=== PATIENT | female | born 1955 | race Caucasian/White ===

== ENCOUNTER → 2018-08-17 09:47 | Outpatient (CLI) | payer OTHER, SELFPAY ==
[2018-08-17 11:54] LABS: Alanine Aminotransferase 23 IU/L (9-52); Albumin 4.5 g/dL (3.5-5.0); Albumin Globulin Ratio 1.6 (1.0-2.8); Alkaline Phosphatase 53 U/L (38-126); Aspartate Aminotransferase 23 IU/L (14-36); Bilirubin Total 0.6 mg/dL (0.2-1.3); Blood Urea Nitrogen 16 mg/dL (7-17); Calcium 10.1 mg/dL (8.4-10.2); Carbon Dioxide 30 mmol/L (22-32); Chloride 100 mmol/L (98-107); Estimated Glomerular Filt Rate > 60.0 mL/min (>60); Globulin 2.9 g/dL (1.7-4.1); Glucose 76 mg/dL (80-110); HEMOLYSIS < 15 (0-50); Potassium 4.6 mmol/L (3.4-5.1); Sodium 140 mmol/L (137-145); Total Protein 7.4 g/dL (6.3-8.2)
[2018-08-17 12:25] LABS: Thyroid Stimulating Hormone 4.47 uIU/mL (0.47-4.68)
== END ==
PROVIDERS: Family Provider Physician Assistant; PCP Physician Assistant; Visit Provider Family Medicine
DX: E03.9 Hypothyroidism, unspecified (principal); Z51.81 Encounter for therapeutic drug level monitoring; Z00.00 Encounter for general adult medical examination without abnormal findings
CPT/HCPCS: 36415; 80053; 84443

== ENCOUNTER → 2018-08-19 16:11 | Outpatient (CLI) | payer OTHER, SELFPAY ==
[2018-08-19 17:18] LABS: Hemoglobin 14.6 g/dL (12.0-16.0)
== END ==
PROVIDERS: Family Provider Physician Assistant; PCP Physician Assistant; Visit Provider Physician Assistant
DX: R06.09 Other forms of dyspnea (principal); Z01.818 Encounter for other preprocedural examination
CPT/HCPCS: 36415; 85018

== ENCOUNTER → 2018-09-10 09:01 | Outpatient (CLI) | payer OTHER, SELFPAY ==
--- NOTE | 2018-09-11 16:12 | PM.PFT.1 ---
Pulmonary Function Test Referral & Results Date Patient Seen: 09/10/18 Requesting provider: Valarie De Luna Results: The spirometry demonstrates an FVC of 2.57 L which is 70% of predicted. The FEV1 was measured at 1.85 L which is 72% of predicted. The FEV1/FVC ratio was 72 which is 91% of predicted. Following the administration of bronchodilator there was a 50% improvement in FEV1 and 83% improvement in FEF 25-75%. Lung volumes show an SVC of 2.40 L which is 79% of predicted. The diffusing capacity was measured at 20.97 which is 86% of predicted. 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
== END ==
PROVIDERS: PCP Physician Assistant; Visit Provider Physician Assistant
DX: R05 Cough (principal); R06.09 Other forms of dyspnea; R60.9 Edema, unspecified
CPT/HCPCS: 94060; 94726; 94729

== ENCOUNTER → 2018-10-26 11:39 | Outpatient (CLI) | payer OTHER, SELFPAY ==
[2018-10-26 12:58] LABS: Cholesterol 218 mg/dL (140-199); HDL Cholesterol 80 mg/dL (40-60); LDL Cholesterol Calculated 102 mg/dL (<100); Triglycerides 178 mg/dL (35-150)
[2018-10-26 13:26] LABS: Thyroid Stimulating Hormone 0.04 uIU/mL (0.47-4.68)
== END ==
PROVIDERS: PCP Physician Assistant; Visit Provider Physician Assistant
DX: Z13.220 Encounter for screening for lipoid disorders (principal); Z13.6 Encounter for screening for cardiovascular disorders; E03.9 Hypothyroidism, unspecified
CPT/HCPCS: 36415; 80061; 84443

== ENCOUNTER 2019-02-25 12:08 | Observation (INO) | payer OTHER, SELFPAY ==
[2019-02-25] VITALS (16 sets, daily range): BP systolic 94–152; BP diastolic 52–76; PULSE 83–121; RESP 15–26; TEMP 36.6–37.8; O2SAT 92–97; BMI 11.2
--- NOTE | 2019-02-25 12:18 | DI.RAD.S_ITS ---
PROCEDURE: XR CHEST 2V INDICATIONS: shortness of breath TECHNIQUE: 2 views of the chest were acquired. COMPARISON: [facility], , CHEST 2 VIEW, 06/07/2016, 19:55. FINDINGS: Surgical changes and devices: None. Lungs and pleura: There are opacities in the left mid to lower lung zone compatible with pneumonia. No pleural effusions or pneumothorax. Mediastinum: Mediastinal contours are normal. Heart size is normal. Bones and chest wall: No suspicious bony abnormalities. Soft tissues appear unremarkable. IMPRESSION: Opacities in the left mid to lower lung zone are compatible with pneumonia. Recommend short-term followup x-ray to ensure resolution. Dictated by: Shelia Louie M.D. on 02/25/2019 at 13:08 Approved by: Shelia Louie M.D. on 02/25/2019 at 13:12
--- NOTE | 2019-02-25 12:37 | ED.URI ---
HPI - URI/Sore Throat <Elinor Gallego PA-C - Last Filed: 02/25/19 20:24> General Chief Complaint: Upper Respiratory Symptoms Stated Complaint: worsening cough, CP, SOB Time Seen by Provider: 02/25/19 12:30 Source: patient Mode of arrival: ambulatory Limitations: no limitations History of Present Illness HPI Narrative: This 63-year-old female is sent from walk-in clinic due to respiratory symptoms, possible recurrent pneumonia. She states that 10 days ago she had a sore throat with nasal congestion and typical ?cold? symptoms. She states that some days after that, she started to have productive cough with dark phlegm. This has gradually worsened. Two nights ago she started to have chills and sweats (no temps taken at home), and has had gradually increasing dyspnea, especially last night and today, it was harder for her to walk up stairs at work. She states this feels somewhat like previous pneumonia. She states that she does have an albuterol inhaler at home that she uses for allergies, and this helps temporarily. She states her chest hurts if she takes a deep breath, cough or sneeze, otherwise no chest pain. She denies any new pain or swelling in her extremities or other new complaints on systems review. PCP Julia De Luna PA-C Related Data Home Medications Medication Instructions Recorded Confirmed meloxicam 15 mg PO DAILY PRN 02/25/19 02/25/19 Previous Rx's Medication Instructions Recorded albuterol sulfate HFA 90 2 puff INHALATION Q4-6H PRN #18 09/23/18 mcg/actuation aerosol inhaler gram fluticasone propionate 44 2 inhalation INHALATION BID #10.6 09/23/18 mcg/actuation HFA aerosol inhaler gram Testosterone Cream 1 mg TOP .COMPLEX #15 ml 09/25/18 [C-PROGESTERiN] 100 mg TOPICAL QDAY #30 ml 09/25/18 levothyroxine 150 mcg tablet 150 mcg PO DAILY #45 tab 10/26/18 Allergies Allergy/AdvReac Type Severity Reaction Status Date / Time No Known Drug Allergies Allergy Verified 02/25/19 11:52 Review of Systems <Elinor Gallego PA-C - Last Filed: 02/25/19 20:24> Review of Systems ROS Unobtainable: All systems reviewed & are unremarkable except as noted in HPI and below PFSH <Elinor Gallego PA-C - Last Filed: 02/25/19 20:24> Medical History 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) Asthma (Chronic) Hypothyroidism (Chronic) Osteoarthritis (Chronic) CAP (community acquired pneumonia) (Acute) Surgical History H/O colposcopy with cervical biopsy (Chronic) Social History Smoking Status: Former smoker Tobacco: How many years used: 25 second hand exposure: No alcohol intake: current substance use type: does not use Social History Smoking Status: Former smoker Tobacco: How many years used: 25 second hand exposure: No alcohol intake: current substance use type: does not use Exam <Elinor Gallego PA-C - Last Filed: 02/25/19 20:24> Narrative Exam Narrative: GENERAL APPEARANCE: Patient sitting comfortably, in no distress. HEAD: No sinus TTP. EYES: PERRL, EOMI. EARS: Normal auditory canals, TMS intact with normal light reflexes. ORAL CAVITY: Normal oropharynx. THROAT: Postnasal noted NECK/THYROID: Neck supple, full range of motion, shotty cervical lymphadenopathy. LUNGS: Generalized coarse, congested breath sounds with scattered crackles, no clear wheeze HEART: RRR without murmur, nl S1, S2, no S3 or S4. ABDOMEN: Soft, nontender, nondistended EXTREMITIES: No edema, no calf tenderness DERMATOLOGIC: No exanthem Initial Vital Signs Initial Vital Signs: Vital Signs Temperature 99.6 F 02/25/19 12:19 Pulse Rate 109 H 02/25/19 12:19 Respiratory Rate 22 02/25/19 12:19 Blood Pressure 152/66 H 02/25/19 12:19 Pulse Oximetry 97 02/25/19 12:19 <Chaya Gould DO - Last Filed: 02/26/19 08:11> Initial Vital Signs Initial Vital Signs: Vital Signs Temperature 99.6 F 02/25/19 12:19 Pulse Rate 109 H 02/25/19 12:19 Respiratory Rate 22 02/25/19 12:19 Blood Pressure 152/66 H 02/25/19 12:19 Pulse Oximetry 97 02/25/19 12:19 Course <Elinor Gallego PA-C - Last Filed: 02/25/19 20:24> Additional Information: I have spoken with Dr. Barron, platform consultant hospitalist, re: patient's persistent tachycardia, tachypnea, requiring some O2, not fully improved after treatments and fluids. She is agreeable with admit/tele for further treatment and monitoring Orders Ordered: ED Orders 02/26/19 05:24 Basic Metabolic Panel Routine Complete Blood Count AUTO DIFF Routine Acetaminophen (Tylenol) 650 mg PO Q6HR PRN PRN Reason: As Needed for Fever/Mild Pain Albuterol (Ventolin) 2.5 mg INH [id number] PRN PRN Reason: Shortness Of Breath Albuterol/Ipratropium (Duoneb) 3 ml INH RTQ4HR PRN PRN Reason: Shortness Of Breath Diphenhydramine HCl (Benadryl) 25 mg PO BEDTIME PRN PRN Reason: Insomnia Last Admin: 02/25/19 23:55 Dose: 25 mg Levofloxacin (Levaquin) 750 mg in 150 mls @ 100 mls/hr IV Q48H JOHN Sodium Chloride (Normal Saline 0.9%) 1,000 mls @ 125 mls/hr IV CONT JOHN Last Admin: 02/26/19 06:10 Dose: 125 mls/hr Infusion: 02/26/19 05:51 Dose: 125 mls/hr Admin: 02/25/19 21:51 Dose: 125 mls/hr Levothyroxine Sodium (Synthroid) 150 mcg PO 0600 JOHN Last Admin: 02/26/19 06:10 Dose: 150 mcg Methylprednisolone (Solu-Medrol 125 Mg Vial) 80 mg IV NOW ONE Stop: 02/26/19 09:29 Discontinued Medications Acetaminophen (Tylenol) 650 mg PO NOW ONE Stop: 02/25/19 15:09 Last Admin: 02/25/19 15:23 Dose: 650 mg Al Hydrox/Mg Hydrox/Simethicone (Maalox Plus) 20 ml PO NOW ONE Stop: 02/26/19 06:19 Last Admin: 02/26/19 06:54 Dose: Not Given Albuterol (Ventolin) 2.5 mg INH NOW ONE Stop: 02/25/19 13:47 Last Admin: 02/25/19 14:24 Dose: 2.5 mg Albuterol/Ipratropium (Duoneb) 3 ml INH NOW ONE Stop: 02/25/19 13:19 Last Admin: 02/25/19 13:24 Dose: 3 ml Albuterol/Ipratropium (Duoneb) 3 ml INH NOW ONE Stop: 02/25/19 13:53 Last Admin: 02/25/19 14:24 Dose: 3 ml Al Hydrox/Mg Hydrox/Simethicone 20 ml/ Lidocaine HCl 15 ml 0 ml PO NOW ONE Stop: 02/25/19 16:36 Last Admin: 02/25/19 16:43 Dose: 35 ml Sodium Chloride (Normal Saline 0.9%) 1,000 mls @ 1,000 mls/hr IV BOLUS ONE Stop: 02/25/19 14:29 Last Infusion: 02/25/19 14:51 Dose: 0 mls/hr Admin: 02/25/19 13:34 Dose: 1,000 mls/hr Levofloxacin (Levaquin) 750 mg in 150 mls @ 100 mls/hr IV NOW ONE Stop: 02/25/19 16:23 Last Infusion: 02/25/19 17:25 Dose: 0 mls/hr Admin: 02/25/19 15:05 Dose: 100 mls/hr Sodium Chloride (Normal Saline 0.9%) 1,000 mls @ 1,000 mls/hr IV BOLUS ONE Stop: 02/25/19 15:53 Last Infusion: 02/25/19 17:32 Dose: 0 mls/hr Admin: 02/25/19 15:05 Dose: 1,000 mls/hr Sodium Chloride (Normal Saline 0.45%) 1,000 mls @ 100 mls/hr IV CONT JOHN Last Admin: 02/25/19 20:47 Dose: 100 mls/hr Ibuprofen (Advil) 800 mg PO NOW ONE Stop: 02/25/19 13:31 Last Admin: 02/25/19 13:33 Dose: 800 mg Lidocaine HCl (Viscous Lidocaine 2%) 15 ml PO NOW ONE Stop: 02/26/19 06:20 Last Admin: 02/26/19 06:54 Dose: Not Given Methylprednisolone (Solu-Medrol 125 Mg Vial) 125 mg IV NOW ONE Stop: 02/25/19 13:47 Last Admin: 02/25/19 13:50 Dose: 125 mg Ranitidine HCl (Zantac) 300 mg PO NOW ONE Stop: 02/25/19 16:36 Last Admin: 02/25/19 16:44 Dose: 300 mg Ranitidine HCl (Zantac) 150 mg PO NOW ONE Stop: 02/26/19 06:50 Last Admin: 02/26/19 07:09 Dose: 150 mg Vital Signs - 8 hr 02/26/19 05:33 Temperature 97.9 F Pulse Rate 79 Respiratory Rate 18 Blood Pressure 127/72 Pulse Oximetry 95 <Chaya Gould DO - Last Filed: 02/26/19 08:11> Orders Ordered: ED Orders 02/26/19 05:24 Basic Metabolic Panel Routine Complete Blood Count AUTO DIFF Routine Acetaminophen (Tylenol) 650 mg PO Q6HR PRN PRN Reason: As Needed for Fever/Mild Pain Albuterol (Ventolin) 2.5 mg INH [id number] PRN PRN Reason: Shortness Of Breath Albuterol/Ipratropium (Duoneb) 3 ml INH RTQ4HR PRN PRN Reason: Shortness Of Breath Diphenhydramine HCl (Benadryl) 25 mg PO BEDTIME PRN PRN Reason: Insomnia Last Admin: 02/25/19 23:55 Dose: 25 mg Levofloxacin (Levaquin) 750 mg in 150 mls @ 100 mls/hr IV Q48H [facility] Sodium Chloride (Normal Saline 0.9%) 1,000 mls @ 125 mls/hr IV CONT [facility] Last Admin: 02/26/19 06:10 Dose: 125 mls/hr Infusion: 02/26/19 05:51 Dose: 125 mls/hr Admin: 02/25/19 21:51 Dose: 125 mls/hr Levothyroxine Sodium (Synthroid) 150 mcg PO 0600 [facility] Last Admin: 02/26/19 06:10 Dose: 150 mcg Methylprednisolone (Solu-Medrol 125 Mg Vial) 80 mg IV NOW ONE Stop: 02/26/19 09:29 Discontinued Medications Acetaminophen (Tylenol) 650 mg PO NOW ONE Stop: 02/25/19 15:09 Last Admin: 02/25/19 15:23 Dose: 650 mg Al Hydrox/Mg Hydrox/Simethicone (Maalox Plus) 20 ml PO NOW ONE Stop: 02/26/19 06:19 Last Admin: 02/26/19 06:54 Dose: Not Given Albuterol (Ventolin) 2.5 mg INH NOW ONE Stop: 02/25/19 13:47 Last Admin: 02/25/19 14:24 Dose: 2.5 mg Albuterol/Ipratropium (Duoneb) 3 ml INH NOW ONE Stop: 02/25/19 13:19 Last Admin: 02/25/19 13:24 Dose: 3 ml Albuterol/Ipratropium (Duoneb) 3 ml INH NOW ONE Stop: 02/25/19 13:53 Last Admin: 02/25/19 14:24 Dose: 3 ml Al Hydrox/Mg Hydrox/Simethicone 20 ml/ Lidocaine HCl 15 ml 0 ml PO NOW ONE Stop: 02/25/19 16:36 Last Admin: 02/25/19 16:43 Dose: 35 ml Sodium Chloride (Normal Saline 0.9%) 1,000 mls @ 1,000 mls/hr IV BOLUS ONE Stop: 02/25/19 14:29 Last Infusion: 02/25/19 14:51 Dose: 0 mls/hr Admin: 02/25/19 13:34 Dose: 1,000 mls/hr Levofloxacin (Levaquin) 750 mg in 150 mls @ 100 mls/hr IV NOW ONE Stop: 02/25/19 16:23 Last Infusion: 02/25/19 17:25 Dose: 0 mls/hr Admin: 02/25/19 15:05 Dose: 100 mls/hr Sodium Chloride (Normal Saline 0.9%) 1,000 mls @ 1,000 mls/hr IV BOLUS ONE Stop: 02/25/19 15:53 Last Infusion: 02/25/19 17:32 Dose: 0 mls/hr Admin: 02/25/19 15:05 Dose: 1,000 mls/hr Sodium Chloride (Normal Saline 0.45%) 1,000 mls @ 100 mls/hr IV CONT JOHN Last Admin: 02/25/19 20:47 Dose: 100 mls/hr Ibuprofen (Advil) 800 mg PO NOW ONE Stop: 02/25/19 13:31 Last Admin: 02/25/19 13:33 Dose: 800 mg Lidocaine HCl (Viscous Lidocaine 2%) 15 ml PO NOW ONE Stop: 02/26/19 06:20 Last Admin: 02/26/19 06:54 Dose: Not Given Methylprednisolone (Solu-Medrol 125 Mg Vial) 125 mg IV NOW ONE Stop: 02/25/19 13:47 Last Admin: 02/25/19 13:50 Dose: 125 mg Ranitidine HCl (Zantac) 300 mg PO NOW ONE Stop: 02/25/19 16:36 Last Admin: 02/25/19 16:44 Dose: 300 mg Ranitidine HCl (Zantac) 150 mg PO NOW ONE Stop: 02/26/19 06:50 Last Admin: 02/26/19 07:09 Dose: 150 mg Vital Signs - 8 hr 02/26/19 05:33 Temperature 97.9 F Pulse Rate 79 Respiratory Rate 18 Blood Pressure 127/72 Pulse Oximetry 95 MDM - URI/Sore Throat <Elinor Gallego PA-C - Last Filed: 02/25/19 20:24> Lab Data Attestation: I reviewed the patient's lab results. Result diagrams: 02/26/19 05:24 02/26/19 05:24 Lab Results 02/25/19 02/25/19 02/25/19 Range/Units 12:30 12:30 12:30 WBC 17.6 H (4.5-11.0) X10^3/uL RBC 4.42 (4.0-5.2) X10^6/uL Hgb 14.2 (12.0-16.0) g/dL Hct 42.4 (36-46) % MCV 95.8 (80-100) fL MCH 32.1 (26-34) PG MCHC 33.5 (30-36) % RDW 12.7 (11.6-14.8) % Plt Count 283 (150-400) X10^3/uL Neut % (Auto) 88.2 H (50-75) % Lymph % (Auto) 6.1 L (25-40) % [place] % (Auto) 5.0 (3-14) % Eos % (Auto) 0.3 L (2-4) % Baso % (Auto) 0.4 (0-2) % Neut # (Auto) 51972 H (5181-6834) /uL Lymph # (Auto) 1100 (8129-1162) /uL [place] # (Auto) 900 (0-900) /uL Eos # (Auto) 100 (0-450) /uL Baso # (Auto) 100 (0-100) /uL Sodium 137 (137-145) mmol/L Potassium 3.8 (3.4-5.1) mmol/L Chloride 100 (98-107) mmol/L Carbon Dioxide 26 (22-32) mmol/L BUN 12 (7-17) mg/dL Creatinine 0.80 (0.52-1.04) mg/dL Estimated GFR > 60.0 (>60) mL/min BUN/Creatinine Ratio 15.0 (6-22) Glucose 97 (80-110) mg/dL Lactate 0.9 (0.7-2.1) mmol/L Calcium 9.6 (8.4-10.2) mg/dL Total Bilirubin 0.9 (0.2-1.3) mg/dL AST 23 (14-36) IU/L ALT 13 (9-52) IU/L Alkaline Phosphatase 74 (38-126) U/L B-Natriuretic Peptide (<100) Total Protein 8.1 (6.3-8.2) g/dL Albumin 4.6 (3.5-5.0) g/dL Globulin 3.5 (1.7-4.1) g/dL Albumin/Globulin Ratio 1.3 (1.0-2.8) Procalcitonin (<0.5) ng/mL Chlamy pneumoniae PCR (Not Detect) Adenovirus (PCR) (Not Detect) B.parapertussis DNA PCR (Not Detect) Coronavirus OC43 (PCR) (Not Detect) Coronavirus HKU1 (PCR) (Not Detect) Coronavirus 229E (PCR) (Not Detect) Coronavirus NL63 (PCR) (Not Detect) Human Metapneumovir PCR (Not Detect) Influenza Type A (PCR) (Not Detect) Influenza Type B (PCR) (Not Detect) M. pneumoniae (PCR) (Not Detect) Parainfluenza 1 (PCR) (Not Detect) Parainfluenza 2 (PCR) (Not Detect) Parainfluenza 3 (PCR) (Not Detect) Parainfluenza 4 (PCR) (Not Detect) RSV (PCR) (Not Detect) Entero/Rhino (PCR) (Not Detect) 02/25/19 02/25/19 02/25/19 Range/Units 12:30 12:40 17:15 WBC (4.5-11.0) X10^3/uL RBC (4.0-5.2) X10^6/uL Hgb (12.0-16.0) g/dL Hct (36-46) % MCV (80-100) fL MCH (26-34) PG MCHC (30-36) % RDW (11.6-14.8) % Plt Count (150-400) X10^3/uL Neut % (Auto) (50-75) % Lymph % (Auto) (25-40) % [place] % (Auto) (3-14) % Eos % (Auto) (2-4) % Baso % (Auto) (0-2) % Neut # (Auto) (3764-2302) /uL Lymph # (Auto) (5749-0195) /uL [place] # (Auto) (0-900) /uL Eos # (Auto) (0-450) /uL Baso # (Auto) (0-100) /uL Sodium (137-145) mmol/L Potassium (3.4-5.1) mmol/L Chloride (98-107) mmol/L Carbon Dioxide (22-32) mmol/L BUN (7-17) mg/dL Creatinine (0.52-1.04) mg/dL Estimated GFR (>60) mL/min BUN/Creatinine Ratio (6-22) Glucose (80-110) mg/dL Lactate (0.7-2.1) mmol/L Calcium (8.4-10.2) mg/dL Total Bilirubin (0.2-1.3) mg/dL AST (14-36) IU/L ALT (9-52) IU/L Alkaline Phosphatase (38-126) U/L B-Natriuretic Peptide < 100 (<100) Total Protein (6.3-8.2) g/dL Albumin (3.5-5.0) g/dL Globulin (1.7-4.1) g/dL Albumin/Globulin Ratio (1.0-2.8) Procalcitonin 1.14 H (<0.5) ng/mL Chlamy pneumoniae PCR Not detected (Not Detect) Adenovirus (PCR) Not detected (Not Detect) B.parapertussis DNA PCR Not detected (Not Detect) Coronavirus OC43 (PCR) Not detected (Not Detect) Coronavirus HKU1 (PCR) Not detected (Not Detect) Coronavirus 229E (PCR) Not detected (Not Detect) Coronavirus NL63 (PCR) Not detected (Not Detect) Human Metapneumovir PCR Not detected (Not Detect) Influenza Type A (PCR) Not detected (Not Detect) Influenza Type B (PCR) Not detected (Not Detect) M. pneumoniae (PCR) Not detected (Not Detect) Parainfluenza 1 (PCR) Not detected (Not Detect) Parainfluenza 2 (PCR) Not detected (Not Detect) Parainfluenza 3 (PCR) Not detected (Not Detect) Parainfluenza 4 (PCR) Not detected (Not Detect) RSV (PCR) Not detected (Not Detect) Entero/Rhino (PCR) Not detected (Not Detect) 02/26/19 02/26/19 Range/Units 05:24 05:24 WBC 16.2 H (4.5-11.0) X10^3/uL RBC 3.90 L (4.0-5.2) X10^6/uL Hgb 12.6 (12.0-16.0) g/dL Hct 37.2 (36-46) % MCV 95.5 (80-100) fL MCH 32.2 (26-34) PG MCHC 33.8 (30-36) % RDW 12.8 (11.6-14.8) % Plt Count 238 (150-400) X10^3/uL Neut % (Auto) 94.1 H (50-75) % Lymph % (Auto) 3.2 L (25-40) % [place] % (Auto) 2.6 L (3-14) % Eos % (Auto) 0.0 L (2-4) % Baso % (Auto) 0.1 (0-2) % Neut # (Auto) 56527 H (8844-7428) /uL Lymph # (Auto) 500 L (9654-5088) /uL [place] # (Auto) 400 (0-900) /uL Eos # (Auto) 0 (0-450) /uL Baso # (Auto) 0 (0-100) /uL Sodium 143 (137-145) mmol/L Potassium 4.1 (3.4-5.1) mmol/L Chloride 109 H (98-107) mmol/L Carbon Dioxide 26 (22-32) mmol/L BUN 9 (7-17) mg/dL Creatinine 0.60 (0.52-1.04) mg/dL Estimated GFR > 60.0 (>60) mL/min BUN/Creatinine Ratio 15.0 (6-22) Glucose 139 H (80-110) mg/dL Lactate (0.7-2.1) mmol/L Calcium 8.9 (8.4-10.2) mg/dL Total Bilirubin (0.2-1.3) mg/dL AST (14-36) IU/L ALT (9-52) IU/L Alkaline Phosphatase (38-126) U/L B-Natriuretic Peptide (<100) Total Protein (6.3-8.2) g/dL Albumin (3.5-5.0) g/dL Globulin (1.7-4.1) g/dL Albumin/Globulin Ratio (1.0-2.8) Procalcitonin (<0.5) ng/mL Chlamy pneumoniae PCR (Not Detect) Adenovirus (PCR) (Not Detect) B.parapertussis DNA PCR (Not Detect) Coronavirus OC43 (PCR) (Not Detect) Coronavirus HKU1 (PCR) (Not Detect) Coronavirus 229E (PCR) (Not Detect) Coronavirus NL63 (PCR) (Not Detect) Human Metapneumovir PCR (Not Detect) Influenza Type A (PCR) (Not Detect) Influenza Type B (PCR) (Not Detect) M. pneumoniae (PCR) (Not Detect) Parainfluenza 1 (PCR) (Not Detect) Parainfluenza 2 (PCR) (Not Detect) Parainfluenza 3 (PCR) (Not Detect) Parainfluenza 4 (PCR) (Not Detect) RSV (PCR) (Not Detect) Entero/Rhino (PCR) (Not Detect) Imaging Data Chest x-ray: Radiologist's impression: [address] [address] XRay Report Signed Patient: Znaa Valero#: [id number] : 7Acct:[id number] Age/Sex: 63 / FDate of Service: 02/25/19 Loc: ED Accession Number: [id number] Procedure: XR chest 2V Ordering Provider: Chaya Gould D.O. PROCEDURE: XR CHEST 2V INDICATIONS: shortness of breath TECHNIQUE: 2 views of the chest were acquired. COMPARISON: [facility], CHEST 2 VIEW, 06/07/2016, 19:55. FINDINGS: Surgical changes and devices: None. Lungs and pleura: There are opacities in the left mid to lower lung zone compatible with pneumonia. No pleural effusions or pneumothorax. Mediastinum: Mediastinal contours are normal. Heart size is normal. Bones and chest wall: No suspicious bony abnormalities. Soft tissues appear unremarkable. IMPRESSION: Opacities in the left mid to lower lung zone are compatible with pneumonia. Recommend short-term followup x-ray to ensure resolution. Dictated by: Shelia Louie M.D. on 02/25/2019 at 13:08 Approved by: Shelia Louie M.D. on 02/25/2019 at 13:12 ECG Data Attestation: I personally reviewed and interpreted this ECG as follows: (Sinus tachycardia, rate 102, normal axis) <Chaya Gould DO - Last Filed: 02/26/19 08:11> Lab Data Lab Results 02/25/19 02/25/19 02/25/19 Range/Units 12:30 12:30 12:30 WBC 17.6 H (4.5-11.0) X10^3/uL RBC 4.42 (4.0-5.2) X10^6/uL Hgb 14.2 (12.0-16.0) g/dL Hct 42.4 (36-46) % MCV 95.8 (80-100) fL MCH 32.1 (26-34) PG MCHC 33.5 (30-36) % RDW 12.7 (11.6-14.8) % Plt Count 283 (150-400) X10^3/uL Neut % (Auto) 88.2 H (50-75) % Lymph % (Auto) 6.1 L (25-40) % [place] % (Auto) 5.0 (3-14) % Eos % (Auto) 0.3 L (2-4) % Baso % (Auto) 0.4 (0-2) % Neut # (Auto) 77132 H (5719-9522) /uL Lymph # (Auto) 1100 (9110-0945) /uL [place] # (Auto) 900 (0-900) /uL Eos # (Auto) 100 (0-450) /uL Baso # (Auto) 100 (0-100) /uL Sodium 137 (137-145) mmol/L Potassium 3.8 (3.4-5.1) mmol/L Chloride 100 (98-107) mmol/L Carbon Dioxide 26 (22-32) mmol/L BUN 12 (7-17) mg/dL Creatinine 0.80 (0.52-1.04) mg/dL Estimated GFR > 60.0 (>60) mL/min BUN/Creatinine Ratio 15.0 (6-22) Glucose 97 (80-110) mg/dL Lactate 0.9 (0.7-2.1) mmol/L Calcium 9.6 (8.4-10.2) mg/dL Total Bilirubin 0.9 (0.2-1.3) mg/dL AST 23 (14-36) IU/L ALT 13 (9-52) IU/L Alkaline Phosphatase 74 (38-126) U/L B-Natriuretic Peptide (<100) Total Protein 8.1 (6.3-8.2) g/dL Albumin 4.6 (3.5-5.0) g/dL Globulin 3.5 (1.7-4.1) g/dL Albumin/Globulin Ratio 1.3 (1.0-2.8) Procalcitonin (<0.5) ng/mL Chlamy pneumoniae PCR (Not Detect) Adenovirus (PCR) (Not Detect) B.parapertussis DNA PCR (Not Detect) Coronavirus OC43 (PCR) (Not Detect) Coronavirus HKU1 (PCR) (Not Detect) Coronavirus 229E (PCR) (Not Detect) Coronavirus NL63 (PCR) (Not Detect) Human Metapneumovir PCR (Not Detect) Influenza Type A (PCR) (Not Detect) Influenza Type B (PCR) (Not Detect) M. pneumoniae (PCR) (Not Detect) Parainfluenza 1 (PCR) (Not Detect) Parainfluenza 2 (PCR) (Not Detect) Parainfluenza 3 (PCR) (Not Detect) Parainfluenza 4 (PCR) (Not Detect) RSV (PCR) (Not Detect) Entero/Rhino (PCR) (Not Detect) 02/25/19 02/25/19 02/25/19 Range/Units 12:30 12:40 17:15 WBC (4.5-11.0) X10^3/uL RBC (4.0-5.2) X10^6/uL Hgb (12.0-16.0) g/dL Hct (36-46) % MCV (80-100) fL MCH (26-34) PG MCHC (30-36) % RDW (11.6-14.8) % Plt Count (150-400) X10^3/uL Neut % (Auto) (50-75) % Lymph % (Auto) (25-40) % [place] % (Auto) (3-14) % Eos % (Auto) (2-4) % Baso % (Auto) (0-2) % Neut # (Auto) (0827-0984) /uL Lymph # (Auto) (0784-1234) /uL [place] # (Auto) (0-900) /uL Eos # (Auto) (0-450) /uL Baso # (Auto) (0-100) /uL Sodium (137-145) mmol/L Potassium (3.4-5.1) mmol/L Chloride (98-107) mmol/L Carbon Dioxide (22-32) mmol/L BUN (7-17) mg/dL Creatinine (0.52-1.04) mg/dL Estimated GFR (>60) mL/min BUN/Creatinine Ratio (6-22) Glucose (80-110) mg/dL Lactate (0.7-2.1) mmol/L Calcium (8.4-10.2) mg/dL Total Bilirubin (0.2-1.3) mg/dL AST (14-36) IU/L ALT (9-52) IU/L Alkaline Phosphatase (38-126) U/L B-Natriuretic Peptide < 100 (<100) Total Protein (6.3-8.2) g/dL Albumin (3.5-5.0) g/dL Globulin (1.7-4.1) g/dL Albumin/Globulin Ratio (1.0-2.8) Procalcitonin 1.14 H (<0.5) ng/mL Chlamy pneumoniae PCR Not detected (Not Detect) Adenovirus (PCR) Not detected (Not Detect) B.parapertussis DNA PCR Not detected (Not Detect) Coronavirus OC43 (PCR) Not detected (Not Detect) Coronavirus HKU1 (PCR) Not detected (Not Detect) Coronavirus 229E (PCR) Not detected (Not Detect) Coronavirus NL63 (PCR) Not detected (Not Detect) Human Metapneumovir PCR Not detected (Not Detect) Influenza Type A (PCR) Not detected (Not Detect) Influenza Type B (PCR) Not detected (Not Detect) M. pneumoniae (PCR) Not detected (Not Detect) Parainfluenza 1 (PCR) Not detected (Not Detect) Parainfluenza 2 (PCR) Not detected (Not Detect) Parainfluenza 3 (PCR) Not detected (Not Detect) Parainfluenza 4 (PCR) Not detected (Not Detect) RSV (PCR) Not detected (Not Detect) Entero/Rhino (PCR) Not detected (Not Detect) 02/26/19 02/26/19 Range/Units 05:24 05:24 WBC 16.2 H (4.5-11.0) X10^3/uL RBC 3.90 L (4.0-5.2) X10^6/uL Hgb 12.6 (12.0-16.0) g/dL Hct 37.2 (36-46) % MCV 95.5 (80-100) fL MCH 32.2 (26-34) PG MCHC 33.8 (30-36) % RDW 12.8 (11.6-14.8) % Plt Count 238 (150-400) X10^3/uL Neut % (Auto) 94.1 H (50-75) % Lymph % (Auto) 3.2 L (25-40) % [place] % (Auto) 2.6 L (3-14) % Eos % (Auto) 0.0 L (2-4) % Baso % (Auto) 0.1 (0-2) % Neut # (Auto) 44012 H (4807-1550) /uL Lymph # (Auto) 500 L (9746-7096) /uL [place] # (Auto) 400 (0-900) /uL Eos # (Auto) 0 (0-450) /uL Baso # (Auto) 0 (0-100) /uL Sodium 143 (137-145) mmol/L Potassium 4.1 (3.4-5.1) mmol/L Chloride 109 H (98-107) mmol/L Carbon Dioxide 26 (22-32) mmol/L BUN 9 (7-17) mg/dL Creatinine 0.60 (0.52-1.04) mg/dL Estimated GFR > 60.0 (>60) mL/min BUN/Creatinine Ratio 15.0 (6-22) Glucose 139 H (80-110) mg/dL Lactate (0.7-2.1) mmol/L Calcium 8.9 (8.4-10.2) mg/dL Total Bilirubin (0.2-1.3) mg/dL AST (14-36) IU/L ALT (9-52) IU/L Alkaline Phosphatase (38-126) U/L B-Natriuretic Peptide (<100) Total Protein (6.3-8.2) g/dL Albumin (3.5-5.0) g/dL Globulin (1.7-4.1) g/dL Albumin/Globulin Ratio (1.0-2.8) Procalcitonin (<0.5) ng/mL Chlamy pneumoniae PCR (Not Detect) Adenovirus (PCR) (Not Detect) B.parapertussis DNA PCR (Not Detect) Coronavirus OC43 (PCR) (Not Detect) Coronavirus HKU1 (PCR) (Not Detect) Coronavirus 229E (PCR) (Not Detect) Coronavirus NL63 (PCR) (Not Detect) Human Metapneumovir PCR (Not Detect) Influenza Type A (PCR) (Not Detect) Influenza Type B (PCR) (Not Detect) M. pneumoniae (PCR) (Not Detect) Parainfluenza 1 (PCR) (Not Detect) Parainfluenza 2 (PCR) (Not Detect) Parainfluenza 3 (PCR) (Not Detect) Parainfluenza 4 (PCR) (Not Detect) RSV (PCR) (Not Detect) Entero/Rhino (PCR) (Not Detect) Imaging Data CT scan - chest: Radiologist's impression: PROCEDURE: CT ANGIO CHEST PE PROTOCOL INDICATIONS: SOB, tachy TECHNIQUE: After the administration of intravenous contrast, 2 mm thick sections acquired from the pulmonary apices to the posterior costophrenic angles. 3-dimensional maximum intensity projection (MIP) coronal and sagittal reformats were then acquired through the thorax. For radiation dose reduction, the following was used: automated exposure control, adjustment of mA and/or kV according to patient size. COMPARISON: [facility], CR, XR CHEST 2V, 02/25/2019, 12:18. [facility], CT, ABDOMEN/PELVIS WITH CONTRAST, 02/11/2012, 13:23. FINDINGS: Image quality: Excellent. Pulmonary arteries: Pulmonary arteries are normal in size, and demonstrate no intraluminal filling defects to suggest central pulmonary embolism. Lungs and pleura: The consolidation noted in the lingula left upper lobe. Patchy opacities in the lung bases bilaterally which could represent atelectasis, aspiration or pneumonia. No pleural effusions or pneumothorax. Central and peripheral airways are patent. Mediastinum: Heart size is normal, without pericardial effusion. No mediastinal or hilar adenopathy. Thoracic aorta is normal in caliber and enhancement. Esophagus is normal in caliber. Small hiatal hernia. Bones and chest wall: No suspicious bony lesions. Ribs and thoracic spine appear intact throughout. Thyroid gland is within normal limits. No axillary or supraclavicular adenopathy. Abdomen: There is a large cyst in the right lobe liver that measures up to 9.8 cm. Cyst is increased in size compared to 02/11/2012. Small 1 cm left adrenal nodule is unchanged in appearance compared to prior CT scan. Visualized upper abdominal solid organs appear normal in the early arterial phase of enhancement. IMPRESSION: 1. No pulmonary embolus. 2. Consolidation in the lingula left upper lobe compatible with pneumonia. 3. Patchy airspace opacities in the lung bases bilaterally which could be related to atelectasis, aspiration or pneumonia. 3. Large hepatic cysts. 4. 1 cm left adrenal nodule stable compared to 02/11/2012. 5. Small hiatal hernia. Dictated by: Eden Burdick MD, PhD on 02/25/2019 at 16:09 ECG Data Attestation: I personally reviewed and interpreted this ECG as follows: Prior ECG tracings: not available for review Interpretation: Normal sinus rhythm rate 102 SD interval [address] changes no T-wave inversions no priors to compare Discharge Plan Departure Patient Disposition: Admitted As Inpatient Clinical Impression: Pneumonia Qualifiers: Pneumonia type: due to unspecified organism Laterality: left Lung location: unspecified part of lung Qualified Code(s): J18.9 - Pneumonia, unspecified organism Asthma Qualifiers: Asthma severity: moderate Asthma persistence: unspecified Asthma complication type: with acute exacerbation Qualified Code(s): J45.901 - Unspecified asthma with (acute) exacerbation Discharge Date/Time: 02/25/19 17:33 Interventions: ED Discharge Assessment Last Done: 02/25/19 17:32 Admit Date/Time: 02/25/19 17:11 Admit Provider: Natty Barron <Chaya Gould DO - Last Filed: 02/26/19 08:11> Cosign ED Attending Christian Attestation: I was immediately available in the department for consultation. Documentation has been reviewed. I agree with assessment and plan.
[2019-02-25 12:45] LABS: Add Manual Diff / Slide Review NO; Basophils Absolute Auto 100 /uL (0-100); Basophils Percent Auto 0.4 % (0-2); Eosinophils Absolute Auto 100 /uL (0-450); Eosinophils Percent Auto 0.3 % (2-4); Hematocrit 42.4 % (36-46); Hemoglobin 14.2 g/dL (12.0-16.0); Lymphocytes Absolute Auto 1100 /uL (1100-4500); Lymphocytes Percent Auto 6.1 % (25-40); Mean Corpuscular HGB Conc 33.5 % (30-36); Mean Corpuscular Hemoglobin 32.1 PG (26-34); Mean Corpuscular Volume 95.8 fL (80-100); Monocytes Absolute Auto 900 /uL (0-900); Neutrophils Absolute Auto 15500 /uL (1500-7000); Neutrophils Percent Auto 88.2 % (50-75); Platelet Count 283 X10^3/uL (150-400); Red Blood Cell Count 4.42 X10^6/uL (4.0-5.2); Red Cell Distribution Width 12.7 % (11.6-14.8); White Blood Cell Count 17.6 X10^3/uL (4.5-11.0)
[2019-02-25 12:58] LABS: Alanine Aminotransferase 13 IU/L (9-52); Albumin 4.6 g/dL (3.5-5.0); Albumin Globulin Ratio 1.3 (1.0-2.8); Alkaline Phosphatase 74 U/L (38-126); Aspartate Aminotransferase 23 IU/L (14-36); Bilirubin Total 0.9 mg/dL (0.2-1.3); Blood Urea Nitrogen 12 mg/dL (7-17); Calcium 9.6 mg/dL (8.4-10.2); Carbon Dioxide 26 mmol/L (22-32); Chloride 100 mmol/L (98-107); Estimated Glomerular Filt Rate > 60.0 mL/min (>60); Globulin 3.5 g/dL (1.7-4.1); Glucose 97 mg/dL (80-110); HEMOLYSIS < 15 (0-50); Lactate (Lactic Acid) 0.9 mmol/L (0.7-2.1); Potassium 3.8 mmol/L (3.4-5.1); Sodium 137 mmol/L (137-145); Total Protein 8.1 g/dL (6.3-8.2)
[2019-02-25] MEDS: ALBUTEROL/IPRATROPIUM 3 ML AMPUL INH ×2 (13:24→14:24)
[2019-02-25] MEDS: IBUPROFEN 400 MG TABLET 800 MG PO (13:33)
[2019-02-25] MEDS: SODIUM CHLORIDE 0.9% 1,000 ML 1000 ML IV ×2 (13:34→15:05)
[2019-02-25 13:35] LABS: B Type Natriuretic Peptide < 100 (<100)
[2019-02-25] MEDS: methylPREDNISolone 125 MG/2 ML VIAL IV (13:50)
[2019-02-25] MEDS: ALBUTEROL 2.5 MG/3 ML NEB (ADULT) INH (14:24)
[2019-02-25] MEDS: levoFLOXacin 750 MG/150 ML PIGGYBACK 100 MG IV (15:05)
--- NOTE | 2019-02-25 15:21 | DI.CT.S_ITS ---
PROCEDURE: CT ANGIO CHEST PE PROTOCOL INDICATIONS: SOB, tachy TECHNIQUE: After the administration of intravenous contrast, 2 mm thick sections acquired from the pulmonary apices to the posterior costophrenic angles. 3-dimensional maximum intensity projection (MIP) coronal and sagittal reformats were then acquired through the thorax. For radiation dose reduction, the following was used: automated exposure control, adjustment of mA and/or kV according to patient size. COMPARISON: Located Within [facility], CR, XR CHEST 2V, 02/25/2019, 12:18. Located Within [facility], CT, ABDOMEN/PELVIS WITH CONTRAST, 02/11/2012, 13:23. FINDINGS: Image quality: Excellent. Pulmonary arteries: Pulmonary arteries are normal in size, and demonstrate no intraluminal filling defects to suggest central pulmonary embolism. Lungs and pleura: The consolidation noted in the lingula left upper lobe. Patchy opacities in the lung bases bilaterally which could represent atelectasis, aspiration or pneumonia. No pleural effusions or pneumothorax. Central and peripheral airways are patent. Mediastinum: Heart size is normal, without pericardial effusion. No mediastinal or hilar adenopathy. Thoracic aorta is normal in caliber and enhancement. Esophagus is normal in caliber. Small hiatal hernia. Bones and chest wall: No suspicious bony lesions. Ribs and thoracic spine appear intact throughout. Thyroid gland is within normal limits. No axillary or supraclavicular adenopathy. Abdomen: There is a large cyst in the right lobe liver that measures up to 9.8 cm. Cyst is increased in size compared to 02/11/2012. Small 1 cm left adrenal nodule is unchanged in appearance compared to prior CT scan. Visualized upper abdominal solid organs appear normal in the early arterial phase of enhancement. IMPRESSION: 1. No pulmonary embolus. 2. Consolidation in the lingula left upper lobe compatible with pneumonia. 3. Patchy airspace opacities in the lung bases bilaterally which could be related to atelectasis, aspiration or pneumonia. 3. Large hepatic cysts. 4. 1 cm left adrenal nodule stable compared to 02/11/2012. 5. Small hiatal hernia. Dictated by: Eden Burdick MD, PhD on 02/25/2019 at 16:09 Approved by: Eden Burdick MD, PhD on 02/25/2019 at 16:16
[2019-02-25] MEDS: ACETAMINOPHEN 325 MG TABLET 650 MG PO (15:23)
[2019-02-25] MEDS: MAG HYDROX/ALUMINUM/SIMETH SUS 20 ML, LIDOCAINE VISCOUS 2% 15 ML PO (16:43)
[2019-02-25 17:36] LABS: Procalcitonin 1.14 ng/mL (<0.5)
[2019-02-25 18:44] LABS: Adenovirus Not Detected (Not Detect); Bordetella pertussis Not Detected (Not Detect); Chlamydophila pneumoniae Not Detected (Not Detect); Coronavirus 229E Not Detected (Not Detect); Coronavirus HKU1 Not Detected (Not Detect); Coronavirus NL 63 Not Detected (Not Detect); Coronavirus OC43 Not Detected (Not Detect); Human Metapneumovirus Not Detected (Not Detect); Human Rhinovirus/Enterovirus Not Detected (Not Detect); Influenza A Not Detected (Not Detect); Influenza B Not Detected (Not Detect); Mycoplasma pneumoniae Not Detected (Not Detect); Parainfluenza Virus 1 Not Detected (Not Detect); Parainfluenza Virus 2 Not Detected (Not Detect); Parainfluenza Virus 3 Not Detected (Not Detect); Parainfluenza Virus 4 Not Detected (Not Detect); Respiratory Syncytial Virus Not Detected (Not Detect)
[2019-02-25] MEDS: SODIUM CHLORIDE 0.45% 1,000 ML 100 ML IV (20:47)
--- NOTE | 2019-02-25 21:10 | PM.HP.1 ---
History of Present Illness Date Patient Seen: 02/25/19 Time Patient Seen: 20:00 Chief complaint: worsening cough, CP, SOB Narrative: Patti Valero is a pleasant 63 y.o. female with minimal health problems presented to the ED with shortness of breath. Stated symptoms actually started earlier this month with weakness and a productive cough with brown sputum. She denies fever, but found she was cold at night, shaking, then woke up soaked in sweat. She believes she has had pneumonia a couple of years ago. She works on the [employer] and is around the public frequently, so unknown if she was exposed to other illnesses. She denies headaches, chest pain, palpitations, but has pain with breathing. Denies wheezing at this time, nausea or vomiting, abdominal pain, extremity neuropathy. She was recently diagnosed with hypothyroidism and had a dose change, states is due for a TSH, but that her nurse orthopaedic Dr. Bradshaw wants her to go to a specific lab for her test. Her last TSH seems to indicate she is slightly over-replaced. She was seen in the walk-in clinic who referred her to the ED due to her respiratory status. In the ED, she was administered IV levoquin 750 mg X 1. Plans were initially to discharge her home on oral antibiotics. Due to continued hypoxia of an oxygen saturation ranging from 93-97% and requiring supplemental O2, it was decided to monitor her overnight and continue antibiotic management. 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) Asthma (Chronic) Hypothyroidism (Chronic) Osteoarthritis (Chronic) CAP (community acquired pneumonia) (Acute) Surgical History H/O colposcopy with cervical biopsy (Chronic) Social History Smoking Status: Former smoker Tobacco: How many years used: 25 second hand exposure: No alcohol intake: current substance use type: does not use Family & Social History Safety & Behavioral: Feels Safe in Current Yes Environment Been Physically Hurt or No Threatened By a Person Tobacco & Substance use: Smoking Status Former smoker alcohol intake current alcohol intake frequency 0-2 drinks per day Substance Use Type does not use Meds Home Medications Medication Instructions Recorded Confirmed Type albuterol sulfate HFA 90 2 puff INHALATION Q4-6H PRN #18 09/23/18 02/25/19 Rx mcg/actuation aerosol inhaler gram fluticasone propionate 44 2 inhalation INHALATION BID #10.6 09/23/18 02/25/19 Rx mcg/actuation HFA aerosol inhaler gram Testosterone Cream 1 mg TOP .COMPLEX #15 ml 09/25/18 02/25/19 Rx [C-PROGESTERiN] 100 mg TOPICAL QDAY #30 ml 09/25/18 02/25/19 Rx levothyroxine 150 mcg tablet 150 mcg PO DAILY #45 tab 10/26/18 02/25/19 Rx meloxicam 15 mg PO DAILY PRN 02/25/19 02/25/19 History Allergies Allergy/AdvReac Type Severity Reaction Status Date / Time No Known Drug Allergies Allergy Verified 02/25/19 11:52 Review of Systems Review of Systems All systems reviewed & are unremarkable except as noted in HPI and below Exam Vital Signs (past 8 hours): - 02/25/19 13:17 02/25/19 13:24 02/25/19 14:24 Temperature Pulse Rate 103 H 105 H 106 H Respiratory Rate 26 H 15 15 Blood Pressure Blood Pressure [Left Arm] 114/52 L Pulse Oximetry 94 92 92 02/25/19 14:29 02/25/19 14:33 02/25/19 15:00 Temperature Pulse Rate 106 H 112 H 121 H Respiratory Rate 15 16 18 Blood Pressure Blood Pressure [Left Arm] 94/58 L 106/54 L Pulse Oximetry 92 93 95 02/25/19 15:05 02/25/19 15:06 02/25/19 15:23 Temperature 100.0 F H 100.0 F H 100.0 F H Pulse Rate Respiratory Rate Blood Pressure Blood Pressure [Left Arm] Pulse Oximetry 02/25/19 16:25 02/25/19 17:25 02/25/19 17:45 Temperature 98.6 F 98.7 F 97.9 F Pulse Rate 106 H 96 H 96 H Respiratory Rate 23 24 16 Blood Pressure 115/61 Blood Pressure [Left Arm] 104/54 L 107/54 L Pulse Oximetry 97 96 95 02/25/19 20:01 Temperature 98.1 F Pulse Rate 90 Respiratory Rate Blood Pressure 139/76 Blood Pressure [Left Arm] Pulse Oximetry 93 Oxygen Delivery Method Nasal Cannula Oxygen Flow Rate 0 Narrative Exam Narrative: Gen: Alert, oriented 63 y.o. thin female, NAD HEENT: normocephalic, atraumatic, conjunctiva clear, sclera non-icteric, oral mucosa pink and moist Neck: supple, full ROM Resp: Lungs with bilateral wheezes and rhonchi, non-labored breathing CV: RRR, no murmur or rubs Abd: soft, non-tender, normoactive BTs Skin: no lesions or rashes, dry and intact Neuro: Alert and oriented X 4 w/no focal deficits Extremities: moves all 4 extremities, is ambulatory Psyche: normal mood and affect. Objective Labs Result Diagrams: 02/25/19 12:30 02/25/19 12:30 Labs: Laboratory Results - last 24 hr 02/25/19 02/25/19 02/25/19 12:30 12:30 12:30 WBC 17.6 H RBC 4.42 Hgb 14.2 Hct 42.4 MCV 95.8 MCH 32.1 MCHC 33.5 RDW 12.7 Plt Count 283 Neut % (Auto) 88.2 H Lymph % (Auto) 6.1 L [place] % (Auto) 5.0 Eos % (Auto) 0.3 L Baso % (Auto) 0.4 Neut # (Auto) 86702 H Lymph # (Auto) 1100 [place] # (Auto) 900 Eos # (Auto) 100 Baso # (Auto) 100 Sodium 137 Potassium 3.8 Chloride 100 Carbon Dioxide 26 BUN 12 Creatinine 0.80 Estimated GFR > 60.0 BUN/Creatinine Ratio 15.0 Glucose 97 Lactate 0.9 Calcium 9.6 Total Bilirubin 0.9 AST 23 ALT 13 Alkaline Phosphatase 74 B-Natriuretic Peptide Total Protein 8.1 Albumin 4.6 Globulin 3.5 Albumin/Globulin Ratio 1.3 Procalcitonin Chlamy pneumoniae PCR Adenovirus (PCR) B.parapertussis DNA PCR Coronavirus OC43 (PCR) Coronavirus HKU1 (PCR) Coronavirus 229E (PCR) Coronavirus NL63 (PCR) Human Metapneumovir PCR Influenza Type A (PCR) Influenza Type B (PCR) M. pneumoniae (PCR) Parainfluenza 1 (PCR) Parainfluenza 2 (PCR) Parainfluenza 3 (PCR) Parainfluenza 4 (PCR) RSV (PCR) Entero/Rhino (PCR) 02/25/19 02/25/19 02/25/19 12:30 12:40 17:15 WBC RBC Hgb Hct MCV MCH MCHC RDW Plt Count Neut % (Auto) Lymph % (Auto) [place] % (Auto) Eos % (Auto) Baso % (Auto) Neut # (Auto) Lymph # (Auto) [place] # (Auto) Eos # (Auto) Baso # (Auto) Sodium Potassium Chloride Carbon Dioxide BUN Creatinine Estimated GFR BUN/Creatinine Ratio Glucose Lactate Calcium Total Bilirubin AST ALT Alkaline Phosphatase B-Natriuretic Peptide < 100 Total Protein Albumin Globulin Albumin/Globulin Ratio Procalcitonin 1.14 H Chlamy pneumoniae PCR Not detected Adenovirus (PCR) Not detected B.parapertussis DNA PCR Not detected Coronavirus OC43 (PCR) Not detected Coronavirus HKU1 (PCR) Not detected Coronavirus 229E (PCR) Not detected Coronavirus NL63 (PCR) Not detected Human Metapneumovir PCR Not detected Influenza Type A (PCR) Not detected Influenza Type B (PCR) Not detected M. pneumoniae (PCR) Not detected Parainfluenza 1 (PCR) Not detected Parainfluenza 2 (PCR) Not detected Parainfluenza 3 (PCR) Not detected Parainfluenza 4 (PCR) Not detected RSV (PCR) Not detected Entero/Rhino (PCR) Not detected Assessment & Plan Assessment & Plan narrative: Patti Valero is a 63 y.o. female who will be admitted for treatment and management of a community acquired pneumonia. 1. Community acquired pneumonia, acute, present on admission She will be continued on Levaquin 750 mg IV daily 2. Mild hypoxia, likely restricted airway disease superimposed on COPD, acute, present on admission She was administered a one time dose of Solu-medrol 125 mg in the ED. She will receive on more dose of solu-medrol 80 mg in the am, then transitioned to oral prednisone or a cortisone based inhaler Albuterol/duoneb staggered q 2 hours prn 3. Hypothyroidism, acute and over-replaced present on admission She will be continued on her home dose of levothyroxine 150 mg daily She will have a repeat TSH done at the lab of Dr. Bradshaw's choice. 4. History of menopausal symptoms, chronic Her hormonal creams are being held. Patient is admitted as an inpatient as her stay is anticipated to exceed 2 midnights. FEN: NS at 125 ml/hour, heart healthy diet, bmp in the am VTE Prophylaxis: Bilateral SCDs Disposition: Likely discharge to home Code status: Full Code Admission time: 65 Meds reconciled: Yes Time Spent With Patient Time with patient: 15-24 minutes
--- NOTE | 2019-02-25 21:23 | P.HP_ITS ---
History of Present Illness Date Patient Seen: 02/25/19 Time Patient Seen: 20:00 Chief complaint: worsening cough, CP, SOB Narrative: Patti Valero is a pleasant 63 y.o. female with minimal health problems presented to the ED with shortness of breath. Stated symptoms actually started earlier this month with weakness and a productive cough with brown sputum. She denies fever, but found she was cold at night, shaking, then woke up soaked in sweat. She believes she has had pneumonia a couple of years ago. She works on the [employer] and is around the [employer], so unknown if she was exposed to other illnesses. She denies headaches, chest pain, palpitations, but has pain with breathing. Denies wheezing at this time, nausea or vomiting, abdominal pain, extremity neuropathy. She was recently diagnosed with hypothyroidism and had a dose change, states is due for a TSH, but that her database specialist Dr. Bradshaw wants her to go to a specific lab for her test. Her last TSH seems to indicate she is slightly over-replaced. She was seen in the walk-in clinic who referred her to the ED due to her respiratory status. In the ED, she was administered IV levoquin 750 mg X 1. Plans were initially to discharge her home on oral antibiotics. Due to continue d hypoxia of an oxygen saturation ranging from 93-97% and requiring supplemental O2, it was decided to monitor her overnight and continue antibiotic management. 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) Asthma (Chronic) Hypothyroidism (Chronic) Osteoarthritis (Chronic) CAP (community acquired pneumonia) (Acute) Surgical History H/O colposcopy with cervical biopsy (Chronic) Social History Smoking Status: Former smoker Tobacco: How many years used: 25 second hand exposure: No alcohol intake: current substance use type: does not use Family & Social History Safety & Behavioral: Feels Safe in Current Yes Environment Been Physically Hurt or No Threatened By a Person Tobacco & Substance use: Smoking Status Former smoker alcohol intake current alcohol intake frequency 0-2 drinks per day Substance Use Type does not use Meds Home Medications Medication Instructions Recorded Confirmed Type albuterol sulfate HFA 90 2 puff INHALATION Q4-6H PRN #18 09/23/18 02/25/19 Rx mcg/actuation aerosol inhaler gram fluticasone propionate 44 2 inhalation INHALATION BID #10.6 09/23/18 02/25/19 Rx mcg/actuation HFA aerosol inhaler gram Testosterone Cream 1 mg TOP .COMPLEX #15 ml 09/25/18 02/25/19 Rx [C-PROGESTERiN] 100 mg TOPICAL QDAY #30 ml 09/25/18 02/25/19 Rx levothyroxine 150 mcg tablet 150 mcg PO DAILY #45 tab 10/26/18 02/25/19 Rx meloxicam 15 mg PO DAILY PRN 02/25/19 02/25/19 History Allergies Allergy/AdvReac Type Severity Reaction Status Date / Time No Known Drug Allergies Allergy Verified 02/25/19 11:52 Review of Systems Review of Systems All systems reviewed & are unremarkable except as noted in HPI and below Exam Vital Signs (past 8 hours): - 02/25/19 13:17 02/25/19 13:24 02/25/19 14:24 Temperature Pulse Rate 103 H 105 H 106 H Respiratory Rate 26 H 15 15 Blood Pressure Blood Pressure [Left Arm] 114/52 L Pulse Oximetry 94 92 92 02/25/19 14:29 02/25/19 14:33 02/25/19 15:00 Temperature Pulse Rate 106 H 112 H 121 H Respiratory Rate 15 16 18 Blood Pressure Blood Pressure [Left Arm] 94/58 L 106/54 L Pulse Oximetry 92 93 95 02/25/19 15:05 02/25/19 15:06 02/25/19 15:23 Temperature 100.0 F H 100.0 F H 100.0 F H Pulse Rate Respiratory Rate Blood Pressure Blood Pressure [Left Arm] Pulse Oximetry 02/25/19 16:25 02/25/19 17:25 02/25/19 17:45 Temperature 98.6 F 98.7 F 97.9 F Pulse Rate 106 H 96 H 96 H Respiratory Rate 23 24 16 Blood Pressure 115/61 Blood Pressure [Left Arm] 104/54 L 107/54 L Pulse Oximetry 97 96 95 02/25/19 20:01 Temperature 98.1 F Pulse Rate 90 Respiratory Rate Blood Pressure 139/76 Blood Pressure [Left Arm] Pulse Oximetry 93 Oxygen Delivery Method Nasal Cannula Oxygen Flow Rate 0 Narrative Exam Narrative: Gen: Alert, oriented 63 y.o. thin female, NAD HEENT: normocephalic, atraumatic, conjunctiva clear, sclera non-icteric, oral mucosa pink and moist Neck: supple, full ROM Resp: Lungs with bilateral wheezes and rhonchi, non-labored breathing CV: RRR, no murmur or rubs Abd: soft, non-tender, normoactive BTs Skin: no lesions or rashes, dry and intact Neuro: Alert and oriented X 4 w/no focal deficits Extremities: moves all 4 extremities, is ambulatory Psyche: normal mood and affect. Objective Labs Result Diagrams: 02/25/19 12:30 02/25/19 12:30 Labs: Laboratory Results - last 24 hr 02/25/19 02/25/19 02/25/19 12:30 12:30 12:30 WBC 17.6 H RBC 4.42 Hgb 14.2 Hct 42.4 MCV 95.8 MCH 32.1 MCHC 33.5 RDW 12.7 Plt Count 283 Neut % (Auto) 88.2 H Lymph % (Auto) 6.1 L [place] % (Auto) 5.0 Eos % (Auto) 0.3 L Baso % (Auto) 0.4 Neut # (Auto) 00746 H Lymph # (Auto) 1100 [place] # (Auto) 900 Eos # (Auto) 100 Baso # (Auto) 100 Sodium 137 Potassium 3.8 Chloride 100 Carbon Dioxide 26 BUN 12 Creatinine 0.80 Estimated GFR > 60.0 BUN/Creatinine Ratio 15.0 Glucose 97 Lactate 0.9 Calcium 9.6 Total Bilirubin 0.9 AST 23 ALT 13 Alkaline Phosphatase 74 B-Natriuretic Peptide Total Protein 8.1 Albumin 4.6 Globulin 3.5 Albumin/Globulin Ratio 1.3 Procalcitonin Chlamy pneumoniae PCR Adenovirus (PCR) B.parapertussis DNA PCR Coronavirus OC43 (PCR) Coronavirus HKU1 (PCR) Coronavirus 229E (PCR) Coronavirus NL63 (PCR) Human Metapneumovir PCR Influenza Type A (PCR) Influenza Type B (PCR) M. pneumoniae (PCR) Parainfluenza 1 (PCR) Parainfluenza 2 (PCR) Parainfluenza 3 (PCR) Parainfluenza 4 (PCR) RSV (PCR) Entero/Rhino (PCR) 02/25/19 02/25/19 02/25/19 12:30 12:40 17:15 WBC RBC Hgb Hct MCV MCH MCHC RDW Plt Count Neut % (Auto) Lymph % (Auto) [place] % (Auto) Eos % (Auto) Baso % (Auto) Neut # (Auto) Lymph # (Auto) [place] # (Auto) Eos # (Auto) Baso # (Auto) Sodium Potassium Chloride Carbon Dioxide BUN Creatinine Estimated GFR BUN/Creatinine Ratio Glucose Lactate Calcium Total Bilirubin AST ALT Alkaline Phosphatase B-Natriuretic Peptide < 100 Total Protein Albumin Globulin Albumin/Globulin Ratio Procalcitonin 1.14 H Chlamy pneumoniae PCR Not detected Adenovirus (PCR) Not detected B.parapertussis DNA PCR Not detected Coronavirus OC43 (PCR) Not detected Coronavirus HKU1 (PCR) Not detected Coronavirus 229E (PCR) Not detected Coronavirus NL63 (PCR) Not detected Human Metapneumovir PCR Not detected Influenza Type A (PCR) Not detected Influenza Type B (PCR) Not detected M. pneumoniae (PCR) Not detected Parainfluenza 1 (PCR) Not detected Parainfluenza 2 (PCR) Not detected Parainfluenza 3 (PCR) Not detected Parainfluenza 4 (PCR) Not detected RSV (PCR) Not detected Entero/Rhino (PCR) Not detected Assessment & Plan Assessment & Plan narrative: Patti Valero is a 63 y.o. female who will be admitted for treatment and management of a community acquired pneumonia. 1. Community acquired pneumonia, acute, present on admission * She will be continued on Levaquin 750 mg IV daily 2. Mild hypoxia, likely restricted airway disease superimposed on COPD, acute, present on admission * She was administered a one time dose of Solu-medrol 125 mg in the ED. She will receive on more dose of solu-medrol 80 mg in the am, then transitioned to oral prednisone or a cortisone based inhaler * Albuterol/duoneb staggered q 2 hours prn 3. Hypothyroidism, acute and over-replaced present on admission * She will be continued on her home dose of levothyroxine 150 mg daily * She will have a repeat TSH done at the lab of Dr. Bradshaw's choice. 4. History of menopausal symptoms, chronic * Her hormonal creams are being held. Patient is admitted as an inpatient as her stay is anticipated to exceed 2 midnights. FEN: NS at 125 ml/hour, heart healthy diet, bmp in the am VTE Prophylaxis: Bilateral SCDs Disposition: Likely discharge to home Code status: Full Code Admission time: 65 Meds reconciled: Yes Time Spent With Patient Time with patient: 15-24 minutes
[2019-02-25] MEDS: SODIUM CHLORIDE 0.9% 1,000 ML 125 ML IV (21:51)
[2019-02-25] MEDS: diphenhydrAMINE 25 MG TABLET PO (23:55)
[2019-02-26] VITALS (7 sets, daily range): BP systolic 115–145; BP diastolic 61–72; PULSE 71–99; RESP 15–20; TEMP 36.2–37.3; O2SAT 93–97
--- NOTE | 2019-02-26 00:10 | PC.NURSE ---
Addendum entered by Heidi Frank R.N. 02/26/19 06:53: Complaining of acid reflux and had received order for Maalox/Lidocaine compound but pharmacist states Maalox not recommended due to interaction with thyroid medication so now order obtained for Zantac. Patient made aware and will be given once med is verified and then received from pharmacy. Addendum entered by Heidi Frank R.N. 02/26/19 05:29: Slept most of shift. Denies any pain. Only intermittent coughing and still has not produced a sputum. Maintaining sat > 92% without oxygen. Requests SCD's be off at this time; allowed as per protocol to remove x 1 hour but reminded to ankle wave. Original Note: Patient is alert and oriented. Breath sounds coarse, tight and diminished with scattered inspiratory crackles. Has hoarse sounding cough which she states is productive of yellow/brown sputum but has been unable to produce a sputum specimen since admission. RA sat is 95%; does get SOB with exertion. On continuous pulse oximetry. HRR. Denies nausea. BT present; reports chronic constipation and states she takes Dulcolax every night and then has a BM in the morning. Has urinary urgency and dribbling with stress incontinence worsened with cough; wearing pad. Denies dysuria, or frequency. Independent with bed mobility. Complains of generalized weakness so is assisted when out of bed. Denies pain. Fall risk score is moderate and verbalizes understanding to call for assistance. Bilateral SCD's in place. States she has intermittent numbness in all extremities but feels it is related to not taking Thyroid meds for a while (now back on them per patient).
[2019-02-26 06:04] LABS: Add Manual Diff / Slide Review NO; Basophils Absolute Auto 0 /uL (0-100); Basophils Percent Auto 0.1 % (0-2); Eosinophils Absolute Auto 0 /uL (0-450); Hematocrit 37.2 % (36-46); Hemoglobin 12.6 g/dL (12.0-16.0); Lymphocytes Absolute Auto 500 /uL (1100-4500); Lymphocytes Percent Auto 3.2 % (25-40); Mean Corpuscular HGB Conc 33.8 % (30-36); Mean Corpuscular Hemoglobin 32.2 PG (26-34); Mean Corpuscular Volume 95.5 fL (80-100); Monocytes Absolute Auto 400 /uL (0-900); Monocytes Percent Auto 2.6 % (3-14); Neutrophils Absolute Auto 15300 /uL (1500-7000); Neutrophils Percent Auto 94.1 % (50-75); Platelet Count 238 X10^3/uL (150-400); Red Cell Distribution Width 12.8 % (11.6-14.8); White Blood Cell Count 16.2 X10^3/uL (4.5-11.0)
[2019-02-26 06:05] LABS: Blood Urea Nitrogen 9 mg/dL (7-17); Calcium 8.9 mg/dL (8.4-10.2); Carbon Dioxide 26 mmol/L (22-32); Chloride 109 mmol/L (98-107); Estimated Glomerular Filt Rate > 60.0 mL/min (>60); Glucose 139 mg/dL (80-110); HEMOLYSIS < 15 (0-50); Potassium 4.1 mmol/L (3.4-5.1); Sodium 143 mmol/L (137-145)
[2019-02-26] MEDS: SODIUM CHLORIDE 0.9% 1,000 ML 125 ML IV ×2 (06:10→15:04)
[2019-02-26] MEDS: LEVOTHYROXINE 150 MCG TABLET PO (06:10)
[2019-02-26] MEDS: methylPREDNISolone 125 MG/2 ML VIAL 80 MG IV (08:37)
--- NOTE | 2019-02-26 12:36 | PM.PN.1 ---
Subjective Date Patient Seen: 02/26/19 Interval history: Patti Valero is a pleasant 63-year-old female with minimal health problems who presented to the ED with shortness of breath. The patient is resting in bed comfortably. She reports she feels significantly better than she did on arrival. She continues to endorse shortness of breath and pleuritic pain with deep breathing although both improved. She is not on oxygen. She reports a viral like upper resipratory tract illness that started 2 weeks ago and has been slowly progressive. She no longer has headache, sore throat, rhinitis or nasal congestion. She also denies chest pain, abdominal pain, nausea, vomiting, fever, chills, dysuria, diarrhea or constipation. She is voiding without difficulty. She has not yet had a BM and reports she is stimulant laxative dependent with Dulcolax. She is up ambulating minimally without assistance. Exam Vital Signs (past 8 hours): - 02/26/19 11:36 02/26/19 15:13 02/26/19 15:45 Temperature 97.9 F 97.6 F Pulse Rate 79 71 93 H Respiratory Rate 18 16 20 Blood Pressure 115/61 145/63 H Pulse Oximetry 94 97 93 Oxygen Delivery Method Room Air Oxygen Flow Rate 0 Narrative Exam Narrative: General: Middle-aged female lying in bed and in no acute distress, well-developed, well-nourished, appropriately interactive HEENT: Normocephalic, atraumatic. External ears without defect. Pupils equal, round, and reactive to light. Anicteric sclerae, moist conjunctivae, and no lid lag. Oropharynx free of erythema and cobble stoning with moist mucosa. Neck: Supple with full range of motion. No jugular venous distension. No lymphadenopathy or thyromegaly. Cardiovascular: Regular rate and rhythm without murmurs, rubs, or gallops appreciated. Pulmonary: Lungs diminished and tight but clear to auscultation bilaterally in all lung toribio except left base is coarse. No crackles, wheezes, or rhonchi. Normal respiratory effort with no use of accessory muscles. Abdomen: Soft, bowel sounds are present, nontender, nondistended. No hepatosplenomegaly or masses appreciated. Extremities: No clubbing, cyanosis, or edema. Skin: Normal temperature, turgor, and texture; widespread vitiligo rash. No ulcers, or subcutaneous nodules appreciated. Neurological: Cranial nerves grossly intact. Psychiatric: Normal mood and affect. Alert and oriented to person, place, and time. Objective Labs Result Diagrams: 02/27/19 05:05 02/27/19 05:05 Labs: Laboratory Results - last 24 hr 02/25/19 02/25/19 02/25/19 12:30 12:40 17:15 WBC RBC Hgb Hct MCV MCH MCHC RDW Plt Count Neut % (Auto) Lymph % (Auto) [place] % (Auto) Eos % (Auto) Baso % (Auto) Neut # (Auto) Lymph # (Auto) [place] # (Auto) Eos # (Auto) Baso # (Auto) Sodium 137 Potassium 3.8 Chloride 100 Carbon Dioxide 26 BUN 12 Creatinine 0.80 Estimated GFR > 60.0 BUN/Creatinine Ratio 15.0 Glucose 97 Calcium 9.6 Total Bilirubin 0.9 AST 23 ALT 13 Alkaline Phosphatase 74 Total Protein 8.1 Albumin 4.6 Globulin 3.5 Albumin/Globulin Ratio 1.3 Procalcitonin 1.14 H Chlamy pneumoniae PCR Not detected Adenovirus (PCR) Not detected B.parapertussis DNA PCR Not detected Coronavirus OC43 (PCR) Not detected Coronavirus HKU1 (PCR) Not detected Coronavirus 229E (PCR) Not detected Coronavirus NL63 (PCR) Not detected Human Metapneumovir PCR Not detected Influenza Type A (PCR) Not detected Influenza Type B (PCR) Not detected M. pneumoniae (PCR) Not detected Parainfluenza 1 (PCR) Not detected Parainfluenza 2 (PCR) Not detected Parainfluenza 3 (PCR) Not detected Parainfluenza 4 (PCR) Not detected RSV (PCR) Not detected Entero/Rhino (PCR) Not detected 02/26/19 02/26/19 05:24 05:24 WBC 16.2 H RBC 3.90 L Hgb 12.6 Hct 37.2 MCV 95.5 MCH 32.2 MCHC 33.8 RDW 12.8 Plt Count 238 Neut % (Auto) 94.1 H Lymph % (Auto) 3.2 L [place] % (Auto) 2.6 L Eos % (Auto) 0.0 L Baso % (Auto) 0.1 Neut # (Auto) 11139 H Lymph # (Auto) 500 L [place] # (Auto) 400 Eos # (Auto) 0 Baso # (Auto) 0 Sodium 143 Potassium 4.1 Chloride 109 H Carbon Dioxide 26 BUN 9 Creatinine 0.60 Estimated GFR > 60.0 BUN/Creatinine Ratio 15.0 Glucose 139 H Calcium 8.9 Total Bilirubin AST ALT Alkaline Phosphatase Total Protein Albumin Globulin Albumin/Globulin Ratio Procalcitonin Chlamy pneumoniae PCR Adenovirus (PCR) B.parapertussis DNA PCR Coronavirus OC43 (PCR) Coronavirus HKU1 (PCR) Coronavirus 229E (PCR) Coronavirus NL63 (PCR) Human Metapneumovir PCR Influenza Type A (PCR) Influenza Type B (PCR) M. pneumoniae (PCR) Parainfluenza 1 (PCR) Parainfluenza 2 (PCR) Parainfluenza 3 (PCR) Parainfluenza 4 (PCR) RSV (PCR) Entero/Rhino (PCR) Assessment & Plan Assessment & Plan narrative: Patti Valero is a pleasant 63-year-old female with minimal health problems who presented to the ED with shortness of breath. 1. Acute community-acquired bacterial pneumonia, present on admission. Active. -Chest x-ray demonstrated opacities in the left mid to lower lung zone compatible with pneumonia. -CTA chest negative for PE and demonstrated consolidation in the lingula left upper lobe compatible with pneumonia and patchy airspace opacities in the lung bases bilaterally which could be related to atelectasis, aspiration or pneumonia. Incidental large hepatic cysts and 1 cm left adrenal nodule stable compared to 02/11/2012. Recommend outpatient workup of hepatic cysts. -Ordered complete pneumonia workup including: Respiratory viral PCR negative. Strep pneumoniae and Legionella urine antigens, pending. Sputum culture not yet collected. Blood cultures x2 have no growth to date. -Received levofloxacin 750 mg in the ED. Continue levofloxacin 750 mg daily. -Consulted respiratory therapy for evaluation and treatment. Continue DuoNeb every 4 hours while awake and albuterol nebs every 2 hours as needed for shortness of breath. May use supplemental oxygen if necessary to maintain oxygen saturation 88%. -Continue conservative treatment including Mucinex 1200 mg twice daily for mucolytic effect and Sudafed 60 mg every 6 hours as needed for congestion. 2. Acute shortness of breath, with possible restrictive airway disease superimposed on COPD, present on admission. Resolving. -previous provider indicated the patient was hypoxemic but never truly met criteria for hypoxemia. -Received Solu-medrol 125 mg IV x 1 in the ED and Solu-Medrol 80 mg IV x1 upon admission. -Consulted respiratory therapy for evaluation and treatment. Continue DuoNeb every 4 hours while awake and albuterol nebs every 2 hours as needed for shortness of breath. May use supplemental oxygen if necessary to maintain oxygen saturation 88%. 3. Hypothyroidism, chronic, present on admission. Presumed stable. -Ordered TSH for baseline function evaluation. -Continue home dose of levothyroxine 150 mcg daily. 4. History of menopausal symptoms on HRT, chronic, present on admission. Stable -Held hormonal creams. Disposition: Likely discharge to home in 1-2 days if improving with pneumonia treatment.
--- NOTE | 2019-02-26 14:39 | CM.DANOTE ---
Addendum entered by Glenna Osorio LPN 02/26/19 14:53: PCP: confirmed [facility] De Luna/[facility]. She was seen there by PAC Clementine Ritter on 02/25 and referrred to the hospital. Original Note: Discharge Planning/Care Management DCP: assessment: case received, EMR reviewed. Discussed case in Team Rounds this morning. Dr. Barron stated she had not yet seen pt, would know more re POC at that time. She is in the room now having a discussion with the patient. Pt is a 63 year old feamle who lives in [place]. Payer: [employer] [facility] Pt works for the [employer]. Son Tab Valero is listed as her primary family contact: [phone]. PCP: unclear at this time. Pt sees an endrocrinologist for thyroid. P: check in with pt as more is known and assist with any d/c needs that may arise. Advanced directive, confirm from FAMILY Start: 02/25/19 18:41 Freq: Q24H Status: Active Protocol: Document 02/25/19 18:43 EM (Rec: 02/25/19 18:45 EM [id number]) Advance Directive, confirm on record Time 18:45 Person contacted Opal Copy received No CM Discharge Assessment Start: 02/26/19 14:38 Freq: Status: Active Protocol: Document 02/26/19 14:39 ITV (Rec: 02/26/19 14:39 ITV [id number]) Discharge Planning Assessment Advance Directives? No History Provided By Medical Record Independent with ADL's Yes Is patient alert and oriented? Yes Review Status In Process
[2019-02-26] MEDS: ALBUTEROL 2.5 MG/3 ML NEB (ADULT) INH (15:13)
[2019-02-26] MEDS: levoFLOXacin 750 MG/150 ML PIGGYBACK 100 MG IV (15:44)
--- NOTE | 2019-02-26 16:36 | P.PN_ITS ---
Subjective Date Patient Seen: 02/26/19 Interval history: Patti Valero is a pleasant 63-year-old female with minimal health problems who presented to the ED with shortness of breath. The patient is resting in bed comfortably. She reports she feels significantly better than she did on arrival. She continues to endorse shortness of breath and pleuritic pain with deep breathing although both improved. She is not on oxygen. She reports a viral like upper resipratory tract illness that started 2 weeks ago and has been slowly progressive. She no longer has headache, sore throat, rhinitis or nasal congestion. She also denies chest pain, abdominal pain, nausea, vomiting, fever, chills, dysuria, diarrhea or constipation. She is voiding without difficulty. She has not yet had a BM and reports she is stimu lant laxative dependent with Dulcolax. She is up ambulating minimally without assistance. Exam Vital Signs (past 8 hours): - 02/26/19 11:36 02/26/19 15:13 02/26/19 15:45 Temperature 97.9 F 97.6 F Pulse Rate 79 71 93 H Respiratory Rate 18 16 20 Blood Pressure 115/61 145/63 H Pulse Oximetry 94 97 93 Oxygen Delivery Method Room Air Oxygen Flow Rate 0 Narrative Exam Narrative: General: Middle-aged female lying in bed and in no acute distress, well- developed, well-nourished, appropriately interactive HEENT: Normocephalic, atraumatic. External ears without defect. Pupils equal, round, and reactive to light. Anicteric sclerae, moist conjunctivae, and no lid lag. Oropharynx free of erythema and cobble stoning with moist mucosa. Neck: Supple with full range of motion. No jugular venous distension. No lymphadenopathy or thyromegaly. Cardiovascular: Regular rate and rhythm without murmurs, rubs, or gallops appreciated. Pulmonary: Lungs diminished and tight but clear to auscultation bilaterally in all lung toribio except left base is coarse. No crackles, wheezes, or rhonchi. Normal respiratory effort with no use of accessory muscles. Abdomen: Soft, bowel sounds are present, nontender, nondistended. No hepatosplenomegaly or masses appreciated. Extremities: No clubbing, cyanosis, or edema. Skin: Normal temperature, turgor, and texture; widespread vitiligo rash. No ulcers, or subcutaneous nodules appreciated. Neurological: Cranial nerves grossly intact. Psychiatric: Normal mood and affect. Alert and oriented to person, place, and time. Objective Labs Result Diagrams: 02/27/19 05:05 02/27/19 05:05 Labs: Laboratory Results - last 24 hr 02/25/19 02/25/19 02/25/19 12:30 12:40 17:15 WBC RBC Hgb Hct MCV MCH MCHC RDW Plt Count Neut % (Auto) Lymph % (Auto) [place] % (Auto) Eos % (Auto) Baso % (Auto) Neut # (Auto) Lymph # (Auto) [place] # (Auto) Eos # (Auto) Baso # (Auto) Sodium 137 Potassium 3.8 Chloride 100 Carbon Dioxide 26 BUN 12 Creatinine 0.80 Estimated GFR > 60.0 BUN/Creatinine Ratio 15.0 Glucose 97 Calcium 9.6 Total Bilirubin 0.9 AST 23 ALT 13 Alkaline Phosphatase 74 Total Protein 8.1 Albumin 4.6 Globulin 3.5 Albumin/Globulin Ratio 1.3 Procalcitonin 1.14 H Chlamy pneumoniae PCR Not detected Adenovirus (PCR) Not detected B.parapertussis DNA PCR Not detected Coronavirus OC43 (PCR) Not detected Coronavirus HKU1 (PCR) Not detected Coronavirus 229E (PCR) Not detected Coronavirus NL63 (PCR) Not detected Human Metapneumovir PCR Not detected Influenza Type A (PCR) Not detected Influenza Type B (PCR) Not detected M. pneumoniae (PCR) Not detected Parainfluenza 1 (PCR) Not detected Parainfluenza 2 (PCR) Not detected Parainfluenza 3 (PCR) Not detected Parainfluenza 4 (PCR) Not detected RSV (PCR) Not detected Entero/Rhino (PCR) Not detected 02/26/19 02/26/19 05:24 05:24 WBC 16.2 H RBC 3.90 L Hgb 12.6 Hct 37.2 MCV 95.5 MCH 32.2 MCHC 33.8 RDW 12.8 Plt Count 238 Neut % (Auto) 94.1 H Lymph % (Auto) 3.2 L [place] % (Auto) 2.6 L Eos % (Auto) 0.0 L Baso % (Auto) 0.1 Neut # (Auto) 21739 H Lymph # (Auto) 500 L [place] # (Auto) 400 Eos # (Auto) 0 Baso # (Auto) 0 Sodium 143 Potassium 4.1 Chloride 109 H Carbon Dioxide 26 BUN 9 Creatinine 0.60 Estimated GFR > 60.0 BUN/Creatinine Ratio 15.0 Glucose 139 H Calcium 8.9 Total Bilirubin AST ALT Alkaline Phosphatase Total Protein Albumin Globulin Albumin/Globulin Ratio Procalcitonin Chlamy pneumoniae PCR Adenovirus (PCR) B.parapertussis DNA PCR Coronavirus OC43 (PCR) Coronavirus HKU1 (PCR) Coronavirus 229E (PCR) Coronavirus NL63 (PCR) Human Metapneumovir PCR Influenza Type A (PCR) Influenza Type B (PCR) M. pneumoniae (PCR) Parainfluenza 1 (PCR) Parainfluenza 2 (PCR) Parainfluenza 3 (PCR) Parainfluenza 4 (PCR) RSV (PCR) Entero/Rhino (PCR) Assessment & Plan Assessment & Plan narrative: Patti Valero is a pleasant 63-year-old female with minimal health problems who presented to the ED with shortness of breath. 1. Acute community-acquired bacterial pneumonia, present on admission. Active. -Chest x-ray demonstrated opacities in the left mid to lower lung zone compatible with pneumonia. -CTA chest negative for PE and demonstrated consolidation in the lingula left upper lobe compatible with pneumonia and patchy airspace opacities in the lung bases bilaterally which could be related to atelectasis, aspiration or pneumonia. Incidental large hepatic cysts and 1 cm left adrenal nodule stable compared to 02/11/2012. Recommend outpatient workup of hepatic cysts. -Ordered complete pneumonia workup including: Respiratory viral PCR negative. Strep pneumoniae and Legionella urine antigens, pending. Sputum culture not yet collected. Blood cultures x2 have no growth to date. -Received levofloxacin 750 mg in the ED. Continue levofloxacin 750 mg daily. -Consulted respiratory therapy for evaluation and treatment. Continue DuoNeb every 4 hours while awake and albuterol nebs every 2 hours as needed for shortness of breath. May use supplemental oxygen if necessary to maintain oxygen saturation 88%. -Continue conservative treatment including Mucinex 1200 mg twice daily for mucolytic effect and Sudafed 60 mg every 6 hours as needed for congestion. 2. Acute shortness of breath, with possible restrictive airway disease superimposed on COPD, present on admission. Resolving. -previous provider indicated the patient was hypoxemic but never truly met criteria for hypoxemia. -Received Solu-medrol 125 mg IV x 1 in the ED and Solu-Medrol 80 mg IV x1 upon admission. -Consulted respiratory therapy for evaluation and treatment. Continue DuoNeb every 4 hours while awake and albuterol nebs every 2 hours as needed for shortness of breath. May use supplemental oxygen if necessary to maintain oxygen saturation 88%. 3. Hypothyroidism, chronic, present on admission. Presumed stable. -Ordered TSH for baseline function evaluation. -Continue home dose of levothyroxine 150 mcg daily. 4. History of menopausal symptoms on HRT, chronic, present on admission. Stable -Held hormonal creams. Disposition: Likely discharge to home in 1-2 days if improving with pneumonia treatment.
[2019-02-26 17:26] LABS: Bacteria Urine None Seen; RBC Urine None Seen (0-5/HPF)
[2019-02-26 17:29] LABS: Appearance Urine UA CLEAR; Bilirubin Urine UA NEGATIVE (NEGATIVE); Color Urine UA YELLOW; Glucose Urine UA 2+ g/dL (Negative); Ketones Urine UA TRACE (NEGATIVE); Leukocyte Esterase Urine UA NEGATIVE (NEGATIVE); Nitrite Urine UA NEGATIVE (Negative); Occult Blood Urine UA NEGATIVE (Negative); Protein Urine UA NEGATIVE (Negative); Specific Gravity Urine UA <=1.005 (1.000-1.035); Urobilinogen Urine UA 0.2 E.U./dL (0.2); pH Urine UA 6.5 (4.5-8.0)
[2019-02-26 17:39] LABS: Culture Indicated Urine Cult Not Indicated; Squamous Epithelial Cell Urine 0-1 /HPF (0-5/HPF); WBC Urine 0-1/HPF (0-5/HPF)
[2019-02-26] MEDS: guaiFENesin ER 600 MG TAB 1200 MG PO (20:28)
[2019-02-27] MEDS: diphenhydrAMINE 25 MG TABLET PO (00:24)
[2019-02-27] MEDS: BISACODYL 5 MG TABLET PO (00:24)
[2019-02-27 00:30] VITALS: BMI 23.5
--- NOTE | 2019-02-27 00:39 | PC.NURSE ---
Addendum entered by Heidi Frank R.N. 02/27/19 05:49: Noted weight this morning is 65.9kg whereas yesterday's weight was 29.7kg. Noted on whiteboard in room that admission weight was 62.2kg but was inaccurately recorded on admission assessment. Uncertain about yesterday's weight, but today's weight more consistent with admission weight. Addendum entered by Heidi Frank R.N. 02/27/19 05:30: FLACC score of 0 earlier but now patient states she never was able to fall asleep and knee pain is not better. Normally takes 800mg of Tylenol at home and only received 650mg here. Discussed stronger pain medication but decided to try warm blankets to knees before making decision re: additional pain medication. Addendum entered by Heidi Frank R.N. 02/27/19 04:08: Has not been able to sleep despite Benadryl. Now states having arthritis pain in bilateral knees; medicated with Tylenol. Original Note: Patient is alert and oriented. Breath sounds with improved aeration but still very diminished in right LL and has crackles in right middle lobe. Intermittent cough which has been non productive since admission so still have not been able to obtain a sputum. On continuous pulse oximetry and RA sat is 95%. States she still feels a little SOB when up to bathroom. HRR. Denies nausea. BT present and abdomen is soft; administered Dulcolax tab as per request as is normal routine at home to take blanca night. Voiding with some new dysuria of yesterday but UA sent was negative; also has chronic urgency, dribbling and stress incontinence. Independent with bed mobility and gets up independently to bathroom; discussed calling for assistance is too SOB, weak or dizzy prior to getting up and patient verbalizes agreement. Has 4/10 pleuritic chest discomfort but declines offer of pain medication. Wearing bilateral SCD's. Fall risk score is moderate. Medicated with Benadryl for sleep.
[2019-02-27] MEDS: ACETAMINOPHEN 325 MG TABLET 650 MG PO (04:04)
[2019-02-27 04:10] VITALS: BP 135/87; PULSE 77; RESP 16; TEMP 36.4; O2SAT 95
[2019-02-27] MEDS: SODIUM CHLORIDE 0.9% 1,000 ML 75 ML IV (05:28)
[2019-02-27] MEDS: LEVOTHYROXINE 150 MCG TABLET PO (05:28)
[2019-02-27 05:33] LABS: Add Manual Diff / Slide Review NO; Basophils Absolute Auto 0 /uL (0-100); Basophils Percent Auto 0.1 % (0-2); Eosinophils Absolute Auto 0 /uL (0-450); Hematocrit 34.8 % (36-46); Hemoglobin 11.7 g/dL (12.0-16.0); Lymphocytes Absolute Auto 1100 /uL (1100-4500); Lymphocytes Percent Auto 5.7 % (25-40); Mean Corpuscular HGB Conc 33.6 % (30-36); Mean Corpuscular Hemoglobin 31.8 PG (26-34); Mean Corpuscular Volume 94.8 fL (80-100); Monocytes Absolute Auto 600 /uL (0-900); Monocytes Percent Auto 3.3 % (3-14); Neutrophils Absolute Auto 16800 /uL (1500-7000); Neutrophils Percent Auto 90.9 % (50-75); Platelet Count 254 X10^3/uL (150-400); Red Blood Cell Count 3.67 X10^6/uL (4.0-5.2); Red Cell Distribution Width 12.6 % (11.6-14.8); White Blood Cell Count 18.5 X10^3/uL (4.5-11.0)
[2019-02-27 05:38] LABS: Alanine Aminotransferase 28 IU/L (9-52); Albumin 3.3 g/dL (3.5-5.0); Albumin Globulin Ratio 1.1 (1.0-2.8); Alkaline Phosphatase 65 U/L (38-126); Aspartate Aminotransferase 27 IU/L (14-36); BUN Creatinine Ratio 16.7 (6-22); Bilirubin Total 0.4 mg/dL (0.2-1.3); Blood Urea Nitrogen 10 mg/dL (7-17); Calcium 8.7 mg/dL (8.4-10.2); Carbon Dioxide 23 mmol/L (22-32); Chloride 109 mmol/L (98-107); Estimated Glomerular Filt Rate > 60.0 mL/min (>60); Globulin 2.9 g/dL (1.7-4.1); Glucose 115 mg/dL (80-110); HEMOLYSIS < 15 (0-50); Potassium 3.9 mmol/L (3.4-5.1); Sodium 138 mmol/L (137-145); Total Protein 6.2 g/dL (6.3-8.2)
[2019-02-27 05:55] LABS: Procalcitonin 0.47 ng/mL (<0.5)
[2019-02-27 06:06] LABS: TSH w/ Reflex to FT4 0.42 uIU/mL (0.47-4.68)
[2019-02-27 06:31] LABS: Free T4, Direct Thyroxine 1.47 ng/dL (0.78-2.19)
[2019-02-27 07:20] VITALS: BP 134/67; PULSE 73; RESP 14; TEMP 36.8; O2SAT 94
[2019-02-27 08:21] VITALS: O2SAT 95
[2019-02-27] MEDS: guaiFENesin ER 600 MG TAB 1200 MG PO (09:17)
--- NOTE | 2019-02-27 10:29 | CM.DPC ---
DCP: continued: case discussed in Team Rounds with Dr. Barron saying pt would likely d/c today and that pt was eager for same. She is completing a work release note for pt and pt will follow with PCP Julia De Luna. Met with pt to check in. She was unsure where Julia De Luna was now located as she is now no longer at the [facility]. Obtained copy of the letter sent out by Director of [facility] to patients dated November 23 2018 and with information re where each provider is and the new locations of several providers, including Julia De Luna. Now at the [address] Map is attached. Copy given to pt as well as to Dr. Barron and pt will be calling for appt March 01 as the clinic is closed over the weekend.
--- NOTE | 2019-02-27 10:42 | PM.DS.1 ---
History of Present Illness Date Patient Seen: 02/25/19 Chief complaint: worsening cough, CP, SOB Narrative: Written by Randa GRAHAM: Patti Valero is a pleasant 63 y.o. female with minimal health problems presented to the ED with shortness of breath. Stated symptoms actually started earlier this month with weakness and a productive cough with brown sputum. She denies fever, but found she was cold at night, shaking, then woke up soaked in sweat. She believes she has had pneumonia a couple of years ago. She works on the [employer] and is around the public frequently, so unknown if she was exposed to other illnesses. She denies headaches, chest pain, palpitations, but has pain with breathing. Denies wheezing at this time, nausea or vomiting, abdominal pain, extremity neuropathy. 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 Her last TSH seems to indicate she is slightly over-replaced. She was seen in the walk-in clinic who referred her to the ED due to her respiratory status. In the ED, she was administered IV levoquin 750 mg X 1. Plans were initially to discharge her home on oral antibiotics. Due to continued hypoxia of an oxygen saturation ranging from 93-97% and requiring supplemental O2, it was decided to monitor her overnight and continue antibiotic management. Discharge Providers Date of admission: 02/25/19 17:11 Discharge Date: 02/27/19 Primary care physician: Valarie De Luna PA-C Consults: 02/26/19 14:59 Consult to Respiratory Therapy Evaluate & Treat Comment: 1x neb tx for sputum induction, may continue Physician Instructions: Evaluate and treat Discharge provider: Natty Barron DO Summary Discharge Diagnosis: 1. Acute community-acquired bacterial pneumonia, present on admission. Improving. 2. Acute shortness of breath, with possible underlying restrictive airway disease superimposed on COPD, present on admission. Resolving. 3. Hypothyroidism, chronic, present on admission. Presumed stable. 4. History of menopausal symptoms on HRT, chronic, present on admission. Stable Hospital Course: Patti Valero is a pleasant 63-year-old female with minimal health problems who presented to the ED with shortness of breath. 1. Acute community-acquired bacterial pneumonia, present on admission. Improving. -Chest x-ray demonstrated opacities in the left mid to lower lung zone compatible with pneumonia. -CTA chest negative for PE and demonstrated consolidation in the lingula left upper lobe compatible with pneumonia and patchy airspace opacities in the lung bases bilaterally which could be related to atelectasis, aspiration or pneumonia. Incidental large hepatic cysts and 1 cm left adrenal nodule stable compared to 02/11/2012. Recommend outpatient workup of hepatic cysts. -Ordered complete pneumonia workup including: Respiratory viral PCR negative. Strep pneumoniae and Legionella urine antigens, pending. Sputum culture not collected. Blood cultures x2 have no growth to date. -Initial WBC 17.6 and trended down to 16.2. Increased back up to 18.5 likely due to glucocorticoid administration. Procalcitonin initially elevated at 1.14 and trended down to 0.47. Recommended repeat CBC in 3 days with PCP. -Received levofloxacin 750 mg in the ED. Continued and discharged on levofloxacin 750 mg daily for total of 7 days to complete full antibiotic course. -Consulted respiratory therapy for evaluation and treatment. Continued DuoNeb every 4 hours while awake and albuterol nebs every 2 hours as needed for shortness of breath. Did not use supplemental oxygen if necessary to maintain oxygen saturation 88%. Recommended continue albuterol and fluticasone inhaler at home. -Continued conservative treatment including Mucinex 1200 mg twice daily for mucolytic effect and Sudafed 60 mg every 6 hours as needed for congestion. 2. Acute shortness of breath, with possible underlying restrictive airway disease superimposed on COPD, present on admission. Resolving. -Previous provider indicated the patient was hypoxemic but never truly met criteria for hypoxemia. -Received Solu-medrol 125 mg IV x 1 in the ED and Solu-Medrol 80 mg IV x1 upon admission. -Consulted respiratory therapy for evaluation and treatment. Continue DuoNeb every 4 hours while awake and albuterol nebs every 2 hours as needed for shortness of breath. May use supplemental oxygen if necessary to maintain oxygen saturation 88%. 3. Hypothyroidism, chronic, present on admission. Presumed stable. -TSH 0.42 but free T4 within normal limits at 1.47. Patient is followed by Dr. Yung of Endocrinology who manages patient's thyroid testing and medication closely, therefore, will not adjust dose. -Continued home dose of levothyroxine 150 mcg daily. 4. History of menopausal symptoms on HRT, chronic, present on admission. Stable -Held hormonal creams. Status at Discharge Functional status at discharge: independent ambulation Overall status at discharge: patient is progressing back to baseline Exam Vital Signs (past 8 hours): - 02/27/19 04:10 02/27/19 07:20 02/27/19 08:21 Temperature 97.5 F L 98.2 F Pulse Rate 77 73 Respiratory Rate 16 14 Blood Pressure 135/87 134/67 Pulse Oximetry 95 94 95 Oxygen Delivery Method Room Air Oxygen Flow Rate 0 Narrative Exam Narrative: General: Middle-aged female lying in bed and in no acute distress, well-developed, well-nourished, appropriately interactive HEENT: Normocephalic, atraumatic. External ears without defect. Pupils equal, round, and reactive to light. Anicteric sclerae, moist conjunctivae, and no lid lag. Oropharynx free of erythema and cobble stoning with moist mucosa. Neck: Supple with full range of motion. No jugular venous distension. No lymphadenopathy or thyromegaly. Cardiovascular: Regular rate and rhythm without murmurs, rubs, or gallops appreciated. Pulmonary: Clear to auscultation bilateral with scattered rhonchi at bases. No crackles or wheezes. Normal respiratory effort with no use of accessory muscles. Abdomen: Soft, bowel sounds are present, nontender, nondistended. No hepatosplenomegaly or masses appreciated. Extremities: No clubbing, cyanosis, or edema. Skin: Normal temperature, turgor, and texture; widespread vitiligo rash. No ulcers, or subcutaneous nodules appreciated. Neurological: Cranial nerves grossly intact. Psychiatric: Normal mood and affect. Alert and oriented to person, place, and time. Objective Labs Result Diagrams: 02/27/19 05:05 02/27/19 05:05 Labs: Laboratory Results - last 24 hr 02/26/19 02/27/19 02/27/19 17:23 05:05 05:05 WBC 18.5 H RBC 3.67 L Hgb 11.7 L Hct 34.8 L MCV 94.8 MCH 31.8 MCHC 33.6 RDW 12.6 Plt Count 254 Neut % (Auto) 90.9 H Lymph % (Auto) 5.7 L Bond % (Auto) 3.3 Eos % (Auto) 0.0 L Baso % (Auto) 0.1 Neut # (Auto) 57637 H Lymph # (Auto) 1100 Bond # (Auto) 600 Eos # (Auto) 0 Baso # (Auto) 0 Sodium Potassium Chloride Carbon Dioxide BUN Creatinine Estimated GFR BUN/Creatinine Ratio Glucose Calcium Total Bilirubin AST ALT Alkaline Phosphatase Total Protein Albumin Globulin Albumin/Globulin Ratio Procalcitonin 0.47 TSH Free T4 Urine Color Yellow Urine Appearance Clear Urine pH 6.5 Ur Specific [place] <=1.005 Urine Protein Negative Urine Glucose (UA) 2+ H Urine Ketones Trace H Urine Occult Blood Negative Urine Nitrate Negative Urine Bilirubin Negative Urine Urobilinogen 0.2 Ur Leukocyte Esterase Negative Urine RBC None seen Urine WBC 0-1/hpf Ur Squamous Epith Cells 0-1 /hpf Urine Bacteria None seen Ur Culture Indicated? Cult not indicated 02/27/19 02/27/19 05:05 05:05 WBC RBC Hgb Hct MCV MCH MCHC RDW Plt Count Neut % (Auto) Lymph % (Auto) Bond % (Auto) Eos % (Auto) Baso % (Auto) Neut # (Auto) Lymph # (Auto) Bond # (Auto) Eos # (Auto) Baso # (Auto) Sodium 138 Potassium 3.9 Chloride 109 H Carbon Dioxide 23 BUN 10 Creatinine 0.60 Estimated GFR > 60.0 BUN/Creatinine Ratio 16.7 Glucose 115 H Calcium 8.7 Total Bilirubin 0.4 AST 27 ALT 28 Alkaline Phosphatase 65 Total Protein 6.2 L Albumin 3.3 L Globulin 2.9 Albumin/Globulin Ratio 1.1 Procalcitonin TSH 0.42 L Free T4 1.47 Urine Color Urine Appearance Urine pH Ur Specific [place] Urine Protein Urine Glucose (UA) Urine Ketones Urine Occult Blood Urine Nitrate Urine Bilirubin Urine Urobilinogen Ur Leukocyte Esterase Urine RBC Urine WBC Ur Squamous Epith Cells Urine Bacteria Ur Culture Indicated? Discharge Plan Discharge Plan Patient Disposition: Home Discharge comment: You are being discharged home. Please follow-up with your PCP, Julia De Luna PA-C, next week and as soon as available for hospital follow-up and repeat blood work. You have been prescribed levofloxacin 750 mg daily for 4 additional days (start tomorrow) to complete a 7 day course. You have also been prescribed Mucinex 1200 mg twice daily as needed to thin mucus secretions and sudafed 60 mg every 6 hours as needed for congestion. Recommend Neti-pot 1-2 times daily as directed on box as research has shown this will decrease cold time by half. Continue using your albuterol as needed for shortness of breath or wheezing and fluticasone inhaler 1-2 times daily for the next 1-2 weeks as you recover from pneumonia (rinse mouth after each use). Try to stay well hydrated get plenty of rest. You have been provided a note for work. Please try to decrease or stop using stimulant laxatives i.e. Dulcolax. You have been prescribed MiraLax (osmotic laxative) and Colace (stool softener) as needed for constipation. Please discuss constipation and laxative use with Julia De Luna as well. Discharge Med Rec/Prescriptions Prescriptions: New polyethylene glycol 3350 17 gram Powder In Packet 17 gm PO DAILY PRN (Reason: Constipation) Qty: 1 RF: 0 docusate sodium [DOK] 100 mg Capsule 100 mg PO BID PRN (Reason: Constipation) Qty: 60 RF: 0 pseudoephedrine HCl 30 mg Tablet 60 mg PO Q6HR PRN (Reason: Congestion) Qty: 30 RF: 0 guaifenesin [Mucus Relief ER] 600 mg Tablet Extended Release 12hr 1,200 mg PO BID PRN (Reason: excessive mucus) Qty: 30 RF: 0 levofloxacin 750 mg tablet 750 mg PO DAILY Qty: 4 RF: 0 Continued fluticasone propionate [Flovent HFA] 44 mcg/actuation HFA aerosol inhaler 2 inhalation INHALATION BID Qty: 10.6 RF: 6 albuterol sulfate 90 mcg/actuation HFA aerosol inhaler 2 puff INHALATION Q4-6H PRN (Reason: shortness of breath) Qty: 18 RF: 3 [C-PROGESTERiN] 100 mg Topical QDAY Qty: 30 RF: 12 Testosterone Cream 1 mg TOP .COMPLEX Qty: 15 RF: 3 levothyroxine 150 mcg tablet 150 mcg PO DAILY Qty: 45 RF: 1 meloxicam 15 mg tablet 15 mg PO DAILY PRN (Reason: arthritis pain) RF: 0 Other Ambulatory Orders: Complete Blood Count AUTO DIFF (Routine) Timeframe: 3 Days Location: Laboratory Ordered By: Natty Barron Follow up/Referrals: Valarie De Luna PA-C [Primary Care Provider] - 3-5 Days (Pt has a f/u appt on 03/09 @ 8315) Provider Discharge Instructions Diet: Diet as Tolerated Diet comment: Try to stay well hydrated Visit Report/Discharge Packet Instructions: DI for Pneumonia -- Adult Discharge Data Primary Care Provider: Valarie De Luna Attending Provider: Natty Barron Admit Date/Time: 02/25/19 17:11 Discharges patient from system. Discharge Date/Time: 02/27/19 12:56
--- NOTE | 2019-02-27 11:40 | PC.NURSE ---
Pt is going to discharge home around 1230. LS decreased but otherwise clear and pt high 90s on ra.
[2019-02-28 20:40] LABS: Strep pneumoniae Ag, Urine NOT DETECTED (NOT DETECTED)
--- NOTE | 2019-03-12 09:02 | PC.NURSE ---
Late entry: Sodium chloride 0.45% stopped 02/26 2148 Sodium choloride 0.9% stopped 02/27 1246
== END 2019-02-27 12:56 | disposition home or self-care (01) ==
LOC: ED 16:55 → AC 02-26 07:51
PROVIDERS: Emergency Medicine; Nurse Practitioner Family; Admitting Provider Internal Medicine; Emergency Provider Internal Medicine; PCP Physician Assistant; Visit Provider Internal Medicine
DX: J15.9 Unspecified bacterial pneumonia (principal); R06.02 Shortness of breath; E03.9 Hypothyroidism, unspecified
CPT/HCPCS: 36415; 36591; 71046; 71275; 80048; 80053; 81001; 83605; 83880; 84145; 84439; 84443; 85025; 86060; 87040; 87633; 93005; 93010; 94150; 94640; 94667; 94762; 96361; 96365; 96366; 96375; 96376; 99285; G0378; J1956; J2930; J7050; J7613; Q9967

== ENCOUNTER → 2019-03-09 12:23 | Outpatient (CLI) | payer OTHER, SELFPAY ==
[2019-02-27 00:30] VITALS: BMI 23.5
[2019-03-09 12:48] LABS: Add Manual Diff / Slide Review NO; Basophils Absolute Auto 100 /uL (0-100); Basophils Percent Auto 0.9 % (0-2); Eosinophils Absolute Auto 300 /uL (0-450); Eosinophils Percent Auto 3.1 % (2-4); Hematocrit 42.3 % (36-46); Hemoglobin 14.3 g/dL (12.0-16.0); Lymphocytes Absolute Auto 1600 /uL (1100-4500); Lymphocytes Percent Auto 19.7 % (25-40); Mean Corpuscular HGB Conc 33.8 % (30-36); Mean Corpuscular Hemoglobin 32.3 PG (26-34); Mean Corpuscular Volume 95.4 fL (80-100); Monocytes Absolute Auto 500 /uL (0-900); Monocytes Percent Auto 5.9 % (3-14); Neutrophils Absolute Auto 5700 /uL (1500-7000); Neutrophils Percent Auto 70.4 % (50-75); Platelet Count 522 X10^3/uL (150-400); Red Blood Cell Count 4.44 X10^6/uL (4.0-5.2); Red Cell Distribution Width 13.3 % (11.6-14.8); White Blood Cell Count 8.1 X10^3/uL (4.5-11.0)
== END ==
PROVIDERS: PCP Physician Assistant; Visit Provider Internal Medicine
DX: D72.829 Elevated white blood cell count, unspecified (principal); Z79.52 Long term (current) use of systemic steroids
CPT/HCPCS: 36415; 85025

== ENCOUNTER → 2019-03-22 13:59 | Outpatient (CLI) | payer OTHER, SELFPAY ==
[2019-02-27 00:30] VITALS: BMI 23.5
--- NOTE | 2019-03-22 14:00 | DI.MRI.S_ITS ---
PROCEDURE: MR ABDOMEN WO/W CON INDICATIONS: 9.8cm hepatic cyst right lobe increase in size since 2011 TECHNIQUE: Coronal HASTE, axial 2D FLASH in- and [id number]; axial breath-hold T2 FSE. Dynamic axial VIBE during the administration of contrast; post-contrast coronal VIBE or 2D FLASH with fat saturation from the hepatic dome to the iliac crests. Optional diffusion weighted imaging and ADC may be performed. COMPARISON: [facility], CT, ABDOMEN/PELVIS WITH CONTRAST, 02/11/2012, 13:23. [facility], US, ABDOMEN LIMITED, 02/05/2012, 11:36. FINDINGS: Image quality: Excellent. Lung bases: No basal pleural effusions. Heart size is normal. Solid organs: Liver is normal in size and enhancement. Within the right hepatic lobe superiorly, anterior segment, there is a large simple appearing cystic structure show no sign of mural nodularity or internal septations. This structure measures up to 7.9 cm oblique AP and 9.5 cm oblique transverse with a craniocaudad dimension of 7.2 cm. Gallbladder appears normal. Biliary system is non dilated. Pancreas is normal in morphology. Spleen is normal in size and enhancement. No adrenal nodules. Both kidneys demonstrate normal size and enhancement, without hydronephrosis. Nodes and vessels: No retroperitoneal or mesenteric adenopathy by size criteria. Aorta and inferior vena cava are normal in size. Bowel and peritoneum: Unenhanced bowel loops are normal in caliber. No free fluid. Bones and soft tissues: No ventral hernias. Bone marrow is normal in overall signal. IMPRESSION: Large cyst involving the right anterior hepatic segment superiorly, showing no evidence of mural nodularity or abnormal adjacent enhancement. No internal septations are found. Benign etiology is presumed. This structure had been present in January of 2012 measuring up to 6.6 x 7.1 x 5.6 cm and thus has moderately enlarged from 2011 to 2019. Dictated by: Nahid Nowak M.D. on 03/22/2019 at 16:29 Approved by: Nahid Nowak M.D. on 03/22/2019 at 16:34
== END ==
PROVIDERS: PCP Physician Assistant; Visit Provider Physician Assistant
DX: K76.89 Other specified diseases of liver (principal)
CPT/HCPCS: 74183; A9579

== ENCOUNTER → 2019-05-14 15:02 | Outpatient (CLI) | payer OTHER, SELFPAY ==
--- NOTE | 2019-05-31 14:23 | P.PFT.S_ITS ---
Pulmonary Function Test Referral & Results Date Patient Seen: 05/14/19 Requesting provider: Valarie De Luna Results: The spirometry demonstrates an FVC of 2.60 L which is 80% of predicted. The FEV1 was measured at 1.96 L which is 77% of predicted. The FEV1/FVC ratio was 75 which is 96% of predicted. Following the administration of bronchodilator there was a 13% improvement in FEV1 and a 66% improvement in FEF 25-75%. Lung volumes show an SVC of 2.3 L which is 70% of predicted. The diffusing capacity was measured at 19.32 which is 79% of predicted. No hemoglobin value was provided, so no correction for potential anemia could be made, if appropriate. The maximum voluntary ventilation was reduced Interpretation: This study demonstrates mild reduction in FEV1 which suggest mild obstructive l celso disease. There is evidence of benefit following bronchodilator administration particularly small airway flow based on improvement in FEF 25-75% There may also be minimal restrictive lung disease present based on slight reduction SVC There is also potentially a slight reduction in diffusing capacity suggesting minimal disease of the capillary alveolar level Compared to PFTs performed in September 2018, current study is essentially unchanged
== END ==
PROVIDERS: PCP Physician Assistant; Visit Provider Physician Assistant
DX: J44.9 Chronic obstructive pulmonary disease, unspecified (principal); J18.9 Pneumonia, unspecified organism
CPT/HCPCS: 94060; 94726; 94729

== ENCOUNTER → 2019-06-09 14:50 | Outpatient (CLI) | payer OTHER, SELFPAY ==
--- NOTE | 2019-06-09 14:54 | DI.RAD.S_ITS ---
PROCEDURE: XR CHEST 2V INDICATIONS: recent pneumonia, returning symptoms TECHNIQUE: 2 views of the chest were acquired. COMPARISON: [facility], CR, XR CHEST 2V, 02/25/2019, 12:18. FINDINGS: Surgical changes and devices: None. Lungs and pleura: Lungs are clear. No pleural effusions or pneumothorax. Mediastinum: Mediastinal contours are normal. Heart size is normal. Bones and chest wall: No suspicious bony abnormalities. Soft tissues appear unremarkable. IMPRESSION: No acute disease. Dictated by: Hesham Gregory M.D. on 06/09/2019 at 17:30 Approved by: Hesham Gregory M.D. on 06/09/2019 at 17:31
[2019-06-09 15:38] LABS: Add Manual Diff / Slide Review NO; Basophils Absolute Auto 100 /uL (0-100); Eosinophils Absolute Auto 300 /uL (0-450); Hematocrit 44.1 % (36-46); Hemoglobin 14.8 g/dL (12.0-16.0); Lymphocytes Absolute Auto 1900 /uL (1100-4500); Lymphocytes Percent Auto 24.4 % (25-40); Mean Corpuscular HGB Conc 33.5 % (30-36); Mean Corpuscular Hemoglobin 31.6 PG (26-34); Mean Corpuscular Volume 94.3 fL (80-100); Monocytes Absolute Auto 500 /uL (0-900); Monocytes Percent Auto 6.3 % (3-14); Neutrophils Absolute Auto 5000 /uL (1500-7000); Neutrophils Percent Auto 64.3 % (50-75); Platelet Count 369 X10^3/uL (150-400); Red Blood Cell Count 4.67 X10^6/uL (4.0-5.2); Red Cell Distribution Width 12.4 % (11.6-14.8); White Blood Cell Count 7.8 X10^3/uL (4.5-11.0)
== END ==
PROVIDERS: Family Provider Physician Assistant; PCP Physician Assistant; Visit Provider Nurse Practitioner Family
DX: R09.89 Other specified symptoms and signs involving the circulatory and respiratory systems (principal); R05 Cough
CPT/HCPCS: 36415; 71046; 85025

== ENCOUNTER → 2020-03-13 11:51 | Outpatient (CLI) | payer OTHER, SELFPAY ==
--- NOTE | 2020-03-13 | DI.RAD.S_ITS ---
PROCEDURE: XR KNEE LT 3V INDICATIONS: KNEE PAIN TECHNIQUE: 3 views of the knee were acquired. COMPARISON: None. FINDINGS: Bones: No fractures or dislocations. No suspicious bony lesions. Soft tissues: No joint effusion. No suspicious soft tissue calcifications. IMPRESSION: No trauma or joint effusion found. Dictated by: Nahid Nowak M.D. on 03/13/2020 at 13:46 Approved by: Nahid Nowak M.D. on 03/13/2020 at 13:47
--- NOTE | 2020-03-13 | DI.RAD.S_ITS ---
PROCEDURE: XR KNEE RT 3V INDICATIONS: KNEE PAIN TECHNIQUE: 3 views of the knee were acquired. COMPARISON: None. FINDINGS: Bones: No fractures or dislocations. No suspicious bony lesions. Soft tissues: No joint effusion. No suspicious soft tissue calcifications. IMPRESSION: No trauma found, source of current symptoms is not seen. Dictated by: Nahid Nowak M.D. on 03/13/2020 at 13:46 Approved by: Nahid Nowak M.D. on 03/13/2020 at 13:46
== END ==
PROVIDERS: Family Provider Physician Assistant; PCP Physician Assistant; Referring Provider Physician Assistant; Visit Provider Physician Assistant
DX: M25.561 Pain in right knee (principal); M25.562 Pain in left knee
CPT/HCPCS: 73562

== ENCOUNTER → 2020-05-22 15:10 | Outpatient (CLI) | payer OTHER, SELFPAY ==
[2020-05-22 10:48] VITALS: BMI 23.5
[2020-05-23 12:21] LABS: COVID19 Sendout Not Detected (Not Detect)
== END ==
PROVIDERS: Family Provider Physician Assistant; PCP Physician Assistant; Visit Provider Physician Assistant
DX: Z11.59 Encounter for screening for other viral diseases (principal)
CPT/HCPCS: 87635

== ENCOUNTER → 2023-08-06 14:42 | Outpatient (CLI) | payer MEDICARE, SELFPAY ==
[2020-05-22 10:48] VITALS: BMI 23.5
--- NOTE | 2023-08-06 14:43 | DI.US.S_ITS ---
PROCEDURE: US ABDOMEN LIMITED INDICATIONS: HISTORY LIVER CYST TECHNIQUE: Real-time scanning was performed of the abdominal and retroperitoneal organs, with image documentation. COMPARISON: [facility], MR, MR ABDOMEN WO/W CON, 03/22/2019, 14:42. CT, CT ASP INTR ABD CYST, 05/13/2019, 8:32. US, US ABDOMEN LIMITED, 04/14/2019, 10:06. FINDINGS: Liver: There is a 7.9 x 6.9 x 0.6 cm anechoic cyst in the right hepatic lobe. Liver is normal in size and homogeneous in echotexture. Liver is otherwise normal in size and echotexture. Gallbladder: No gallstones. No gallbladder wall thickening, pericholecystic fluid or sonographic Suresh's sign. Biliary ducts: Intrahepatic bile ducts are non-dilated. Extrahepatic bile duct caliber measures 3.8 mm. Normal is 6-7 mm or less in diameter, or 10 mm or less post-cholecystectomy. Pancreas: Visualized portions of the pancreas are sonographically normal. Miscellaneous: No free abdominal fluid. IMPRESSION: 1. A large simple appearing cyst in the right hepatic lobe. The cyst appears smaller when compared to the previous MRI dated 03/22/2019. Dictated by: Shelia Louie M.D. on 08/06/2023 at 16:13 Approved by: Shelia Louie M.D. on 08/06/2023 at 16:19
== END ==
PROVIDERS: Family Provider Physician Assistant; PCP Student in an Organized Health Care Education/Training Program; Referring Provider Student in an Organized Health Care Education/Training Program; Visit Provider Student in an Organized Health Care Education/Training Program
DX: Z86.018 Personal history of other benign neoplasm (principal); K76.89 Other specified diseases of liver
CPT/HCPCS: 76705

== ENCOUNTER → 2024-03-05 13:46 | Outpatient (CLI) | payer MEDICARE, SELFPAY ==
[2020-05-22 10:48] VITALS: BMI 23.5
--- NOTE | 2024-03-05 13:47 | DI.RAD.S_ITS ---
PROCEDURE: XR CHEST 2V INDICATIONS: Cough x2 weeks TECHNIQUE: 2 views of the chest were acquired. COMPARISON: None. FINDINGS: Surgical changes and devices: None. Lungs and pleura: Lungs are clear. No pleural effusions or pneumothorax. Mediastinum: Mediastinal contours are normal. Heart size is normal. Bones and chest wall: No suspicious bony abnormalities. Soft tissues appear unremarkable. IMPRESSION: No acute pulmonary process. Dictated by: Allie Maradiaga M.D. on 03/05/2024 at 16:32 Approved by: Allie Maradiaga M.D. on 03/05/2024 at 16:32
== END ==
LOC: RAD 13:47
PROVIDERS: Family Provider Physician Assistant; PCP Student in an Organized Health Care Education/Training Program; Referring Provider Student in an Organized Health Care Education/Training Program; Visit Provider Student in an Organized Health Care Education/Training Program
DX: R05.3 Chronic cough (principal)
CPT/HCPCS: 71046